=== PATIENT | female | born 1975 | race Caucasian/White ===

== ENCOUNTER 2017-01-02 12:20 | Emergency (ER) | payer MEDICAID, OTHER ==
[~2017-01-02] VITALS: Ht 154.9 cm; Wt 90.2 kg
[~2017-01-02 12:20] MED LIST: ALBU6.7H INH; CEPH-460 PO; PRED-503 PO
[2017-01-02 12:29] VITALS: BP 149/94; PULSE 81; RESP 18; TEMP 99.4; O2SAT 98
[2017-01-02 12:52] LABS: BLOOD, URINE NEG (NEG); GLUCOSE,URINE NEG (NEG); KETONE, URINE NEG (NEG); NITRITE,URINE NEG (NEG)
[2017-01-02 12:53] LABS: METHOD OF COLLECTION CLEAN CATCH; URINE COLOR YELLOW (YELLW/STRAW)
[2017-01-02 12:59] LABS: BACTERIA, URINE RARE /hpf; COMMENT (UR) CULT NOT INDICATED; COMMENT2 (UR) MUCOUS PRESENT; CULTURE IF INDICATED CULT NOT INDICATED
[2017-01-02] MEDS ORDERED: SODIUM CHLORIDE 0.9% FLUSH 5 ML FLUSH IVF PRN (13:00)
[2017-01-02 13:04] LABS: AUTOMATED NEUTROPHIL # 5.6 TH/MM3 (1.8-7.7); BASOPHIL # 0.1 TH/MM3 (0-0.2); BASOPHIL % 0.8 % (0.0-2.0); EOSINOPHIL % 0.6 % (0.0-4.0); HEMATOCRIT 38.4 % (35.0-46.0); HEMO FLAGS DIFF FINAL; LYMPH % 22.2 % (9.0-44.0); LYMPHOCYTE # 1.7 TH/MM3 (1.0-4.8); MEAN CELL VOLUME 79.5 FL (80.0-100.0); MEAN CORPUSCULAR HEMOGLOBIN 27.2 PG (27.0-34.0); MEAN CORPUSCULAR HGB CONC 34.2 % (32.0-36.0); MONO % 6.6 % (0.0-8.0); NEUT % 69.8 % (16.0-70.0); PLATELET COUNT 323 TH/MM3 (150-450); RED BLOOD COUNT 4.83 MIL/MM3 (4.00-5.30); RED CELL DISTRIBUTION WIDTH 13.6 % (11.6-17.2); WHITE BLOOD COUNT 7.9 TH/MM3 (4.0-11.0)
[2017-01-02 13:12] LABS: POTASSIUM 3.4 MEQ/L (3.5-5.1)
[2017-01-02 13:15] LABS: BICARBONATE 24.5 MEQ/L (21.0-32.0)
--- NOTE | 2017-01-02 15:00 | RADHPO ---
EXAM DATE/TIME: 01/02/2017 13:53 [place] COMPARISON: No previous studies available for comparison. INDICATIONS : Pelvic pain for one day. LAB(S): Beta-hC MEDICAL HISTORY : Sciatica. Bipolar disorder. Substance use. SURGICAL HISTORY : Cholecystectomy. Foot surgery. ENCOUNTER: Initial ACUITY: 1 day PAIN SCORE: 4/10 LOCATION: Bilateral pelvis MEASUREMENTS: UTERUS: 10.4 x 6.3 x 7.4 cm ENDOMETRIAL STRIPE: >20 mm RIGHT OVARY: 3.1 x 2.3 x 2.2 cm LEFT OVARY: 6.2 x 4.5 x 5.1 cm FINDINGS: UTERUS: There is a small hypoechoic rounded structure with echogenic ring in the fundal region with adjacent small fluid collection. The fluid collection measures up to 2.7 x 0.9 x 1.3 cm and is elongated. Ther e is no definite yolk sac or pole. There is no heart beat. There are 2 hypoechoic small structu res in the cervical region is consistent with nabothian cysts. RIGHT OVARY: Ovary contains no mass or significant cystic lesion. LEFT OVARY: There is a complex cystic structure present measuring up to approximately 4.1 x 4 cm in diameter with no evidence of a pole. There is a thickened wall and echogenic material along a portion of the structure. There is no abnormal color flow. There is small adjacent echogenic foci. MISCELLANEOUS: There is a small amount of free fluid in the cul-de-sac. CONCLUSION: 1. Small apical and structure the uterus with echogenic ring adjacent fluid which is nonspecific but may represent a small intrauterine gestational sac. There is no yolk sac or pole. 2. Complex 4 cm cystic structure in the left ovary which is nonspecific but demonstrates no yolk sac or pole. This is most consistent with a complex cyst. 3. Small amount of free fluid in the cul-de-sac. Tyson Gonzales MD on January 02, 2017 at 14:53 Board Certified Radiologist. This report was verified electronically.
[2017-01-02 15:18] VITALS: RESP 16; O2SAT 98
[2017-01-02] MEDS ORDERED: CLOT1CRE4 VAGINAL (15:18)
[2017-01-02] MEDS ORDERED: PREN29TA PO (15:18)
--- NOTE | 2017-01-02 15:19 | PD ---
HPI Chief Complaint: Related Problem Time Seen by Provider: 12:40 Travel History International Travel<30 days: No Contact w/Intl Traveler<30days: No Traveled to known affect area: No History of Present Illness HPI Patient is a 41-year-old female at approximately 4-5 weeks gestational age presents emergency department for evaluation of suprapubic pain. Patient states that she just had a home test which was positive and she's been doing some googling of her symptoms and is curious is essentially she has an ectopic . Patient denies any vaginal bleeding or vaginal discharge. Does not have a history of ectopic previously. PFSH Past Medical History Bipolar Disorder: Yes Anxiety: Yes Depression: Yes Cancer: No Cardiovascular Problems: No Diabetes: No Diminished Hearing: No Headaches: Yes Musculoskeletal: Yes (sciatica) Psychiatric: Yes Immunizations Current: Yes Migraines: Yes Seizures: No Tetanus Vaccination: Unknown ?: LMP: 11-30-16 : 1 Para: 4 Miscarriage: 2 : 1 Past Surgical History Cholecystectomy: Yes Social History Alcohol Use: Yes Tobacco Use: Yes Substance Use: Yes (CANNABIS) Allergies-Medications (Allergen,Severity, Reaction): Coded Allergies: No Known Allergies (Unverified , 01/02/17) Reported Meds & Prescriptions Reported Meds & Active Scripts Active Clotrimazole Vaginal 1% Cream 1 Appl VAGINAL HS Plus Iron 29-1 mg ( Vit-Iron Carbonyl) 1 Tab Tab 1 Tab PO DAILY Review of Systems Except as stated in HPI: all other systems reviewed are Neg Physical Exam Narrative GENERAL: Well-developed well-nourished no apparent distress SKIN: Warm and dry. HEAD: Atraumatic. Normocephalic. EYES: Pupils equal and round. No scleral icterus. No injection or drainage. ENT: No nasal bleeding or discharge. Mucous membranes pink and moist. NECK: Trachea midline. No JVD. CARDIOVASCULAR: Regular rate and rhythm. No murmur appreciated. RESPIRATORY: No accessory muscle use. Clear to auscultation. Breath sounds equal bilaterally. GASTROINTESTINAL: Abdomen soft, non-tender, nondistended. Hepatic and splenic margins not palpable. GENITOURINARY: Exam performed with female nurse student financial services counselor at all times. Is very scant amount of curd-like discharge which could be consistent with an early yeast infection. No cervical motion tenderness no adnexal tenderness and no midline uterine tenderness. There is no bleeding in external genitalia is grossly normal without any lesion. MUSCULOSKELETAL: No obvious deformities. No clubbing. No cyanosis. No edema. NEUROLOGICAL: Awake and alert. No obvious cranial nerve deficits. Motor grossly within normal limits. Normal speech. PSYCHIATRIC: Appropriate mood and affect; insight and judgment normal. Data Data Last Documented VS Vital Signs Date Time Temp Pulse Resp B/P Pulse Ox O2 Delivery O2 Flow Rate FiO2 01/02/17 15:38 80 16 98 01/02/17 15:18 Room Air 01/02/17 12:29 99.4 149/94 Orders Urinalysis - C+S If Indicated (01/02/17 12:30) Ed Urine Pregnancytest Poc (01/02/17 12:30) Ed Poc Ultrasound (01/02/17 ) Basic Metabolic Panel (Bmp) (01/02/17 12:54) Beta Hcg (Quant/Titer) (01/02/17 12:54) Complete Blood Count With Diff (01/02/17 12:54) Iv Access Insert/Monitor (01/02/17 12:54) Ecg Monitoring (01/02/17 12:54) Oximetry (01/02/17 12:54) Sodium Chloride 0.9% Flush (Ns Flush) (01/02/17 13:00) Us Pelvis (Ques Pr/Ect)W Trans (01/02/17 12:54) Wet Prep Profile (01/02/17 12:55) Gc And Chlamydia Pcr (01/02/17 12:55) Labs Laboratory Tests Test 01/02/17 01/02/17 01/02/17 12:35 12:50 15:10 Urine Collection Type CLEAN CATCH Urine Color YELLOW Urine Turbidity CLEAR Urine pH 6.0 Urine Specific [place] 1.027 Urine Protein NEG mg/dL Urine Glucose (UA) NEG mg/dL Urine Ketones NEG mg/dL Urine Occult Blood NEG Urine Nitrite NEG Urine Bilirubin NEG Urine Leukocyte Esterase NEG Urine Squamous Epithelial 6-8 /hpf Cells Urine Amorphous Sediment FEW Urine Bacteria RARE /hpf Microscopic Urinalysis Comment CULT NOT INDICATED Urine Collection Time 1235 White Blood Count 7.9 TH/MM3 Red Blood Count 4.83 MIL/MM3 Hemoglobin 13.1 GM/DL Hematocrit 38.4 % Mean Corpuscular Volume 79.5 FL Mean Corpuscular Hemoglobin 27.2 PG Mean Corpuscular Hemoglobin 34.2 % Concent Red Cell Distribution Width 13.6 % Platelet Count 323 TH/MM3 Mean Platelet Volume 9.2 FL Neutrophils (%) (Auto) 69.8 % Lymphocytes (%) (Auto) 22.2 % Monocytes (%) (Auto) 6.6 % Eosinophils (%) (Auto) 0.6 % Basophils (%) (Auto) 0.8 % Neutrophils # (Auto) 5.6 TH/MM3 Lymphocytes # (Auto) 1.7 TH/MM3 Monocytes # (Auto) 0.5 TH/MM3 Eosinophils # (Auto) 0.0 TH/MM3 Basophils # (Auto) 0.1 TH/MM3 CBC Comment DIFF FINAL Differential Comment Sodium Level 141 MEQ/L Potassium Level 3.4 MEQ/L Chloride Level 108 MEQ/L Carbon Dioxide Level 24.5 MEQ/L Anion Gap 9 MEQ/L Blood Urea Nitrogen 8 MG/DL Creatinine 0.61 MG/DL Estimat Glomerular Filtration 109 ML/MIN Rate Random Glucose 87 MG/DL Calcium Level 7.8 MG/DL Human Chorionic Gonadotropin, 1054 MIU/ML Quant Clue Cells (Wet Prep) NONE SEEN Vaginal Trichomonas (Wet Prep) NONE SEEN Vaginal Yeast (Wet Prep) NONE SEEN Chlamydia trachomatis DNA NOT DETECTED (PCR) Neisseria gonorrhoeae DNA NOT DETECTED (PCR) MDM Medical Decision Making Medical Screen Exam Complete: Yes Emergency Medical Condition: Yes Differential Diagnosis Ectopic seems unlikely, mild pelvic pain, getting , early , appendicitis unlikely. Narrative Course Patient roomed in the emergency department, she appears quite comfortable and affect on her revisit before pelvic exam she is sleeping soundly in no apparent distress. Pelvic exam is reassuring. Quant shows early . Last 24 hours Impressions Pelvis Ultrasound 01/02/17 1254 Signed Impressions: Service Date/Time: December 13:53 - CONCLUSION: 1. Small apical and structure the uterus with echogenic ring adjacent fluid which is nonspecific but may represent a small intrauterine gestational sac. There is no yolk sac or pole. 2. Complex 4 cm cystic structure in the left ovary which is nonspecific but demonstrates no yolk sac or pole. This is most consistent with a complex cyst. 3. Small amount of free fluid in the cul-de-sac. Tyson Gonzales MD Discussed with patient that no definitive intrauterine could be identified and recommended return to the emergency department 48 hours for repeat Quant. She states that she has an appointment early next week. I discussed that she should still consider returning to the emergency department if she is having any additional pain or vaginal bleeding. She verbalized understanding and agreement. Otherwise she is stable for discharge at this time as my index of suspicion for ruptured ectopic is very low. Procedures Procedure Narrative Bedside transabdominal ultrasound: Patient has cystic structure retrograde to the uterus. Trace of fluid in the pelvis. No obvious intrauterine is found. Diagnosis Primary Impression: Abdominal pain affecting Additional Instructions: I recommend following up very early with an EPOXY SPECIALIST as your age puts you in a high risk category. You are . Ultrasound suggests that you have an early in your uterus(womb) however it is not conclusive. There is still a possibility you have an ectopic . If you're having any symptoms at all I highly suggest you return to the emergency department in 48 hours for repeat testing. I have prescribed you pre- vitamins. Scripts Clotrimazole Vaginal 1% Cream1 Appl VAGINAL HS #45 GM Ref 0 Prov:Jarod Hester MD 01/02/17 Vit-Iron Carbonyl ( Plus Iron 29-1 mg)1 Tab Tab1 Tab PO DAILY #30 TAB Ref 9 Prov:Jarod Hester MD 01/02/17 Disposition: 01 DISCHARGE HOME Condition: Stable Jarod Hester MD Jan 02, 2017 15:19
[2017-01-02 21:06] LABS: CHLAMYDIA PCR NOT DETECTED (NOT DETECT); NEISSERIA PCR NOT DETECTED (NOT DETECT)
== END 2017-01-02 15:38 | disposition home or self-care (01) ==
LOC: PHED 12:20
DX: O26.899 Other specified pregnancy related conditions, unspecified trimester (principal); R10.9 Unspecified abdominal pain; O99.330 Smoking (tobacco) complicating pregnancy, unspecified trimester; O99.320 Drug use complicating pregnancy, unspecified trimester; Z3A.00 Weeks of gestation of pregnancy not specified
CPT/HCPCS: 76700; 76817; 80048; 81001; 84702; 84703; 85025; 87210; 87491; 87591

== ENCOUNTER 2017-01-11 11:50 | Emergency (ER) | payer OTHER ==
[~2017-01-11] VITALS: Ht 152.4 cm; Wt 88.6 kg
[~2017-01-11 11:50] MED LIST changes: -ALBU6.7H INH; -CEPH-460 PO; +CLOT1CRE4 VAGINAL; -PRED-503 PO; +PREN29TA PO
[2017-01-11 11:55] VITALS: BP_SYST 116; BP_SYST 138; BP_DIAS 81; BP_DIAS 91; PULSE 82; PULSE 97; RESP 16; TEMP 98.8; TEMP 99.1; O2SAT 95; O2SAT 98
--- NOTE | 2017-01-11 12:09 | PD ---
HPI Chief Complaint: Dizziness Time Seen by Provider: 12:01 Travel History International Travel<30 days: No Contact w/Intl Traveler<30days: No Traveled to known affect area: No History of Present Illness HPI Patient is a 42-year-old female who presents the emergency department with complaint of headache. For the last 2 days she has had a by mental headache, throbbing. No change in visual acuity, visual field changes. She notes that it radiates into the back of the head and down into the neck. She has been taking Motrin with resolution of the headache at home, but it comes back when her Motrin wears off. No nocturnal symptoms, fevers or chills, neck stiffness. Increasing stressors, states that she was recently diagnosed with and is concerned about being at her advanced maternal age. Additionally, patient seems very preoccupied about the date of her , believe she should be further along based on her sexual intercourse. She asked many questions about the dates of her , and she would've conceived, and how far along she is now. Based on her LMP of 11/30/16 she is 6 weeks 0 days today. She has not had any abdominal pain, low back pain, vaginal bleeding or discharge. This is not why she is here but he had multiple of her questions seemed to resolve around this. Per chart review patient was seen here recently and had positive beta Quant and transvaginal ultrasound. There is no evidence of ectopic at that time, she has RETRIEVAL SPECIALIST follow-up in 3 days to establish care for this . PFSH Past Medical History Bipolar Disorder: Yes Anxiety: Yes Depression: Yes Cancer: No Cardiovascular Problems: No Diabetes: No Diminished Hearing: No Headaches: Yes Musculoskeletal: Yes (sciatica) Psychiatric: Yes Immunizations Current: Yes Migraines: Yes Seizures: No ?: : 1 Para: 4 Miscarriage: 2 : 1 Past Surgical History Cholecystectomy: Yes Social History Alcohol Use: Yes Tobacco Use: Yes Substance Use: Yes (CANNABIS) Allergies-Medications (Allergen,Severity, Reaction): Coded Allergies: No Known Allergies (Unverified , 01/11/17) Reported Meds & Prescriptions Reported Meds & Active Scripts Active Plus Iron 29-1 mg ( Vit-Iron Carbonyl) 1 Tab Tab 1 Tab PO DAILY Review of Systems Except as stated in HPI: all other systems reviewed are Neg Physical Exam Narrative GENERAL: Well-appearing female in no acute distress SKIN: Warm and dry. HEAD: Atraumatic. Normocephalic. EYES: Pupils equal and round. No scleral icterus. No injection or drainage. ENT: No nasal bleeding or discharge. Mucous membranes pink and moist. NECK: Supple without nuchal rigidity CARDIOVASCULAR: Regular rate and rhythm. RESPIRATORY: No accessory muscle use. GASTROINTESTINAL: Abdomen soft, non-tender, nondistended. MUSCULOSKELETAL: Normal gait NEUROLOGICAL: Awake and alert. No obvious cranial nerve deficits. Motor grossly within normal limits. Normal speech. PSYCHIATRIC: Appropriate mood and affect; insight and judgment normal. Data Data Last Documented VS Vital Signs Date Time Temp Pulse Resp B/P Pulse Ox O2 Delivery O2 Flow Rate FiO2 01/11/17 12:00 16 98 Room Air 01/11/17 11:55 98.8 82 116/81 [facility] Medical Decision Making Medical Screen Exam Complete: Yes Emergency Medical Condition: Yes Medical Record Reviewed: Yes Differential Diagnosis 42-year-old female here with complaint of headache. Differential includes tension headache, cluster headache, migraine headache. Patient has been afebrile , no neck stiffness or noctural headaches, is well-appearing, with a normal neurologic examination. This makes infection and subarachnoid hemorrhage very unlikely. There is not enough evidence to pursue these diagnoses. Patient's questions however seemed to revolve much about the dates of her approximate . She does not however have any abdominal pain, vaginal bleeding, discharge, etc. She has RETRIEVAL SPECIALIST follow-up to establish care for this in 3 days and does not warrant further evaluation in the or for this. Narrative Course Patient's symptoms are mild, she does not warrant any further treatment for her headache. Was encouraged to use Tylenol for her headaches for home and establish care for this with RETRIEVAL SPECIALIST as scheduled on Friday. Diagnosis Primary Impression: Tension headache Referrals: Account Manager [employer] 3 days Primary Care Physician as needed Patient Instructions: General Instructions, Tension Headache (ED) Additional Instructions: Tylenol for headache. Follow-up with RETRIEVAL SPECIALIST as scheduled on Friday. Med/Other Pt SpecificInfo: No Change to Meds Disposition: 01 DISCHARGE HOME Condition: Stable Beverly Anderson MD Jan 11, 2017 12:09
[2017-01-11 12:25] VITALS: BP 131/74
== END 2017-01-11 12:30 | disposition home or self-care (01) ==
LOC: PHED 11:50
DX: O26.891 Other specified pregnancy related conditions, first trimester (principal); G44.209 Tension-type headache, unspecified, not intractable; Z3A.01 Less than 8 weeks gestation of pregnancy
CPT/HCPCS: 99283

== ENCOUNTER 2017-02-13 12:00 | Emergency (ER) | payer OTHER ==
[~2017-02-13] VITALS: Ht 154.9 cm; Wt 89.0 kg
[~2017-02-13 12:00] MED LIST changes: -CLOT1CRE4 VAGINAL
[2017-02-13 12:05] VITALS: BP 129/93; PULSE 89; RESP 18; TEMP 93.3; O2SAT 97
--- NOTE | 2017-02-13 13:16 | PD ---
HPI . Possible lice Chief Complaint: Skin Problem Time Seen by Provider: 13:16 Travel History International Travel<30 days: No Contact w/Intl Traveler<30days: No Traveled to known affect area: No History of Present Illness HPI 42-year-old female who is at approximately 11 weeks here with complaints of head itching for 4 months. Patient says she thinks she pulled a small bug out of her hair. She has small children in the house and thinks she may have caught lice. She has no other complaints. She does not bring this to the attention of her OB. She is [facility]. 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 PFSH Past Medical History Bipolar Disorder: Yes Anxiety: Yes Depression: Yes Cancer: No Cardiovascular Problems: No Diabetes: No Diminished Hearing: No Headaches: Yes Musculoskeletal: Yes (sciatica) Psychiatric: Yes Immunizations Current: Yes Migraines: Yes Seizures: No Tetanus Vaccination: > 5 Years Influenza Vaccination: No ?: : 5 Para: 3 Miscarriage: 0 : 1 Past Surgical History Cholecystectomy: Yes Social History Alcohol Use: No Tobacco Use: No Substance Use: Yes (CANNABIS) Allergies-Medications (Allergen,Severity, Reaction): Coded Allergies: No Known Allergies (Unverified , 01/11/17) Reported Meds & Prescriptions Reported Meds & Active Scripts Active Plus Iron 29-1 mg ( Vit-Iron Carbonyl) 1 Tab Tab 1 Tab PO DAILY Review of Systems General / Constitutional: No: Fever Eyes: No: Visual changes HENT: No: Headaches Cardiovascular: No: Chest Pain or Discomfort Respiratory: No: Shortness of Breath Gastrointestinal: No: Abdominal Pain Genitourinary: No: Dysuria Musculoskeletal: No: Pain Skin: Positive Itching, No Rash Neurologic: No: Weakness Psychiatric: No: Depression Endocrine: No: Polydipsia Hematologic/Lymphatic: No: Easy Bruising Physical Exam Narrative GENERAL: AAO x 3, no acute distress, Well-nourished, well-developed patient. SKIN: Warm and dry. No visible rashes or bruising. Dandruff, nits and adult lice visualized in scalp HEAD: Normocephalic and atraumatic. EYES: No scleral icterus. No injection or drainage. ENT: No nasal drainage noted. . Airway patent. NECK: Supple, trachea midline. No JVD. CARDIOVASCULAR: Regular rate and rhythm without murmurs, gallops, or rubs. RESPIRATORY: Breath sounds equal bilaterally. No accessory muscle use. No rhonchi or rales. GASTROINTESTINAL: visual inspection normal EXTREMITIES: No cyanosis or edema. BACK: Nontender without obvious deformity. No CVA tenderness. PSYCH: AAO x 3, normal affect. Data Data Last Documented VS Vital Signs Date Time Temp Pulse Resp B/P Pulse Ox O2 Delivery O2 Flow Rate FiO2 02/13/17 12:05 93.3 89 18 129/93 97 MDM Medical Decision Making Medical Screen Exam Complete: Yes Emergency Medical Condition: Yes Medical Record Reviewed: Yes Differential Diagnosis lice, seborrheic dermatitis, less likely bedbugs Narrative Course 42-year-old female who is at approximately 11 weeks here with complaints of head itching for 4 months. Patient says she thinks she pulled a small bug out of her hair. She has small children in the house and thinks she may have caught lice. She has no other complaints. She does not bring this to the attention of her OB. [facility]. 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 Seen and examined. She has an active lice infestation. Recommended [id number] Nix, which is safe in . She has been advised to see her TRAP SETTER immediately. I advised her to follow-up this week if possible. Work clearance: needs to see TRAP SETTER. She may need something stronger than Nix. Patient verbalized understanding of instructions, questions were answered, and thanked me for their care. I advised them if their condition worsens, please return to the nearest emergency room for further care. Diagnosis Primary Impression: Head lice Patient Instructions: General Instructions Additional Instructions: You can purchase Nix at the local pharmacy. It is safe for use in . Follow up with your retail special event associate Disposition: DISCHARGE HOME Condition: Stable Terri Alcaraz Feb 13, 2017 13:16
== END 2017-02-13 13:46 | disposition home or self-care (01) ==
LOC: PHED 12:00 → PHEFT 13:46
DX: B85.0 Pediculosis due to Pediculus humanus capitis (principal)
CPT/HCPCS: 99282

== ENCOUNTER 2017-02-21 01:19 | Emergency (ER) | payer OTHER ==
[~2017-02-21] VITALS: Ht 154.9 cm; Wt 90.0 kg
[2017-02-21 01:26] VITALS: BP 130/75; PULSE 76; RESP 14; TEMP 98.2; O2SAT 96
--- NOTE | 2017-02-21 01:31 | PD ---
Physical Exam Date Seen by Provider: Feb 21, 2017 Time Seen by Provider: 01:27 Narrative PT SEEN IN TRIAGE. PRESENTS BY EMS .C/O SPOTTING AND CRAMPING. G5,P3,AB1 WITH 11 WEEK PREG. "WORSE ARGUING WITH BABY DADDY" VITALS STABLE. PT WAITING ON BED PLACEMENT [facility] Medical Record Reviewed: Yes Supervised Visit with RUDY: Yes Jv Umanzor Feb 21, 2017 01:31
== END 2017-02-21 05:00 | disposition left against medical advice (07) ==
LOC: NED 01:19
DX: O26.851 Spotting complicating pregnancy, first trimester (principal); Z53.21 Procedure and treatment not carried out due to patient leaving prior to being seen by health care provider; R10.9 Unspecified abdominal pain

== ENCOUNTER 2017-02-28 12:23 | Emergency (ER) | payer OTHER ==
[~2017-02-28] VITALS: Ht 154.9 cm; Wt 88.3 kg
[2017-02-28 12:33] VITALS: BP 130/81; PULSE 108; RESP 20; TEMP 98.6; O2SAT 95
--- NOTE | 2017-02-28 12:40 | PD ---
HPI Chief Complaint: GI Complaint Time Seen by Provider: 12:40 Travel History International Travel<30 days: No Contact w/Intl Traveler<30days: No Traveled to known affect area: No History of Present Illness HPI 42-year-old female who is 12 weeks came in because she's been having vomiting and diarrhea for past 2 days and cramping. Yesterday she had some spotting as well. Patient says that she has had her ultrasound done and confirmed an in utero . She also has an OB. She seemed anxious and in somewhat of a distress. She was slightly tachycardic in the triage. Patient is A1. PFS Past Medical History Narrative Medical List of her past medical, surgical, social and family history was reviewed from the nursing note. Bipolar Disorder: Yes Anxiety: Yes Depression: Yes Cancer: No Cardiovascular Problems: No Diabetes: No Diminished Hearing: No Headaches: Yes Musculoskeletal: Yes (sciatica) Psychiatric: Yes Immunizations Current: Yes Migraines: Yes Seizures: No ?: : 5 Para: 3 Miscarriage: 0 : 1 Past Surgical History Cholecystectomy: Yes Social History Alcohol Use: No Tobacco Use: No Substance Use: Yes (CANNABIS) Allergies-Medications (Allergen,Severity, Reaction): Coded Allergies: No Known Allergies (Unverified , 02/28/17) Comments No known drug allergies. Reported Meds & Prescriptions Reported Meds & Active Scripts Active Zofran Odt (Ondansetron Odt) 4 Mg Tab 4 Mg SL Q6HR PRN Plus Iron 29-1 mg ( Vit-Iron Carbonyl) 1 Tab Tab 1 Tab PO DAILY Narrative Medication List of her home medications reviewed from the nursing note. Review of Systems Except as stated in HPI: all other systems reviewed are Neg Physical Exam Narrative GENERAL: Awake, alert, obese, anxious SKIN: Focused skin assessment warm/dry. HEAD: Atraumatic. Normocephalic. EYES: Pupils equal and round. No scleral icterus. No injection or drainage. ENT: No nasal bleeding or discharge. Mucous membranes pink and moist. NECK: Trachea midline. No JVD. CARDIOVASCULAR: Regular rate and rhythm. No murmur appreciated. RESPIRATORY: No accessory muscle use. Clear to auscultation. Breath sounds equal bilaterally. GASTROINTESTINAL: Abdomen soft, non-tender, nondistended. Hepatic and splenic margins not palpable. MUSCULOSKELETAL: No obvious deformities. No clubbing. No cyanosis. No edema. NEUROLOGICAL: Awake and alert. No obvious cranial nerve deficits. Motor grossly within normal limits. Normal speech. PSYCHIATRIC: Appropriate mood and affect; insight and judgment normal. Data Data Last Documented VS Orders Complete Blood Count With Diff (02/28/17 12:45) Basic Metabolic Panel (Bmp) (02/28/17 12:45) Type And Screen (02/28/17 12:45) Ua Includes Microscopic (02/28/17 12:45) Ondansetron Inj (Zofran Inj) (02/28/17 12:45) Sodium Chlor 0.9% 1000 Ml Inj (Ns 1000 M (02/28/17 12:45) Sodium Chlor 0.9% 1000 Ml Inj (Ns 1000 M (02/28/17 12:45) Labs MDM Medical Decision Making Medical Screen Exam Complete: Yes Emergency Medical Condition: Yes Medical Record Reviewed: Yes Differential Diagnosis Acute gastroenteritis, dehydration, vaginal bleeding and Narrative Course 1:56 PM blood test results of back and within normal limits. I have ordered 2 L of IV fluid bolus and Zofran for her. Patient has not vomited yet. I intend to discharge her home once the fluid is done. She needs to follow up with her OB. The nurse did a bedside Doppler and heart rate was checked. It was 126 bpm. Procedures EKG Prior to Arrival: No Diagnosis Primary Impression: Acute gastroenteritis Additional Impression: Vaginal bleeding in patient at less than 20 weeks gestation Referrals: Primary Care Physician 3 days Additional Instructions: Please call your OB and make a follow-up appointment. Take the medication as per the prescription direction. Drink lots of fluid to keep himself hydrated. Med/Other Pt SpecificInfo: Prescription(s) given Scripts Ondansetron Odt (Zofran Odt)4 Mg Tab4 Mg SL Q6HR PRN (Nausea/Vomiting) #15 TAB Ref 0 Prov:Corey Cleaning MD 02/28/17 Disposition: 01 DISCHARGE HOME Condition: Stable Corey Cleaning MD Feb 28, 2017 12:40 Eosinophils (%) (Auto) 0.6 % Basophils (%) (Auto) 0.4 % Neutrophils # (Auto) 5.4 TH/MM3 Lymphocytes # (Auto) 1.3 TH/MM3 Monocytes # (Auto) 0.5 TH/MM3 Eosinophils # (Auto) 0.0 TH/MM3 Basophils # (Auto) 0.0 TH/MM3 CBC Comment DIFF FINAL Differential Comment Sodium Level 139 MEQ/L Potassium Level 3.5 MEQ/L Chloride Level 105 MEQ/L Carbon Dioxide Level 24.1 MEQ/L Anion Gap 10 MEQ/L Blood Urea Nitrogen 9 MG/DL Creatinine 0.74 MG/DL Estimat Glomerular Filtration 86 ML/MIN Rate Random Glucose 117 MG/DL Calcium Level 9.1 MG/DL Urine Color YELLOW Urine Turbidity CLEAR Urine pH 5.0 Urine Specific [place] 1.027 Urine Protein NEG mg/dL Urine Glucose (UA) NEG mg/dL Urine Ketones NEG mg/dL Urine Occult Blood NEG Urine Nitrite NEG Urine Bilirubin NEG Urine Leukocyte Esterase NEG Urine RBC 0-3 /hpf Urine WBC 0-2 /hpf Urine Squamous Epithelial 0-5 /hpf Cells Urine Hyaline Casts 0-2 /lpf Urine Mucus FEW /lpf MDM Medical Decision Making Medical Screen Exam Complete: Yes Emergency Medical Condition: Yes Medical Record Reviewed: Yes Differential Diagnosis Acute gastroenteritis, dehydration, vaginal bleeding and Narrative Course 1:56 PM blood test results of back and within normal limits. I have ordered 2 L of IV fluid bolus and Zofran for her. Patient has not vomited yet. I intend to discharge her home once the fluid is done. She needs to follow up with her OB. The nurse did a bedside Doppler and heart rate was checked. It was 126 bpm. Procedures EKG Prior to Arrival: No Diagnosis Primary Impression: Acute gastroenteritis Additional Impression: Vaginal bleeding in patient at less than 20 weeks gestation Referrals: Primary Care Physician 3 days Additional Instructions: Please call your OB and make a follow-up appointment. Take the medication as per the prescription direction. Drink lots of fluid to keep himself hydrated. Med/Other Pt SpecificInfo: Prescription(s) given Scripts Ondansetron Odt (Zofran Odt)4 Mg Tab4 Mg SL Q6HR PRN (Nausea/Vomiting) #15 TAB Ref 0 Prov:Corey Cleaning MD 02/28/17 Disposition: 01 DISCHARGE HOME Condition: Stable Corey Cleaning MD Feb 28, 2017 12:40 Corey Cleaning MD Feb 28, 2017 12:40
[2017-02-28] MEDS ORDERED: SODIUM CHLOR 0.9% 1000 ML INJ 1,000 ML IV ONE ×2 (12:45)
[2017-02-28] MEDS ORDERED: ONDANSETRON HCL 4 MG/2 ML VIAL IM ONE (12:45)
[2017-02-28 13:13] LABS: AUTOMATED NEUTROPHIL # 5.4 TH/MM3 (1.8-7.7); BASOPHIL % 0.4 % (0.0-2.0); EOSINOPHIL % 0.6 % (0.0-4.0); HEMO FLAGS DIFF FINAL; LYMPH % 18.2 % (9.0-44.0); LYMPHOCYTE # 1.3 TH/MM3 (1.0-4.8); MEAN CELL VOLUME 80.9 FL (80.0-100.0); MEAN CORPUSCULAR HEMOGLOBIN 27.2 PG (27.0-34.0); MEAN CORPUSCULAR HGB CONC 33.6 % (32.0-36.0); MONO % 6.8 % (0.0-8.0); PLATELET COUNT 319 TH/MM3 (150-450); RED BLOOD COUNT 5.19 MIL/MM3 (4.00-5.30); RED CELL DISTRIBUTION WIDTH 13.1 % (11.6-17.2); WHITE BLOOD COUNT 7.2 TH/MM3 (4.0-11.0)
[2017-02-28 13:14] LABS: BLOOD, URINE NEG (NEG); GLUCOSE,URINE NEG (NEG); KETONE, URINE NEG (NEG); NITRITE,URINE NEG (NEG)
[2017-02-28 13:20] LABS: URINE COLOR YELLOW (YELLW/STRAW)
[2017-02-28 13:21] LABS: HYALINE CAST, URINE 0-2 /lpf (RARE); MUCUS URINE FEW /lpf (OCC); RBC, URINE 0-3 /hpf (0-3); SQUAMOUS EPITHELIAL CELL URINE 0-5 /hpf (0-5); WBC, URINE 0-2 /hpf (0-5)
[2017-02-28 13:22] LABS: POTASSIUM 3.5 MEQ/L (3.5-5.1)
[2017-02-28 13:25] LABS: BICARBONATE 24.1 MEQ/L (21.0-32.0)
[2017-02-28] MEDS ORDERED: ZOFR4TAB3 SL (13:57)
== END 2017-02-28 15:12 | disposition home or self-care (01) ==
LOC: PHED 12:23
DX: O09.521 Supervision of elderly multigravida, first trimester (principal); O20.9 Hemorrhage in early pregnancy, unspecified; Z3A.12 12 weeks gestation of pregnancy; K52.9 Noninfective gastroenteritis and colitis, unspecified; R00.0 Tachycardia, unspecified
CPT/HCPCS: 80048; 81001; 85025; 86850; 86900; 86901; 96360; 96372; 99284; J2405; J7030

== ENCOUNTER 2017-04-03 12:32 | Emergency (ER) | payer OTHER ==
[~2017-04-03] VITALS: Ht 154.9 cm; Wt 90.0 kg
[~2017-04-03 12:32] MED LIST changes: +ZOFR4TAB3 SL
[2017-04-03 12:34] VITALS: BP 134/77; PULSE 82; RESP 16; TEMP 98.2; O2SAT 100
[2017-04-03 13:06] LABS: BLOOD, URINE NEG (NEG); GLUCOSE,URINE NEG (NEG); KETONE, URINE NEG (NEG); NITRITE,URINE NEG (NEG); PH, URINE 5.5 (5.0-8.5)
[2017-04-03 13:13] LABS: METHOD OF COLLECTION CLEAN CATCH; URINE COLOR YELLOW (YELLW/STRAW)
[2017-04-03 13:14] LABS: MUCUS URINE FEW /lpf (OCC); RBC, URINE 0-3 /hpf (0-3); SQUAMOUS EPITHELIAL CELL URINE > 8 /hpf (0-5); WBC, URINE 0-2 /hpf (0-5)
[2017-04-03 13:15] LABS: BACTERIA, URINE FEW /hpf; COMMENT (UR) CULT NOT INDICATED; CULTURE IF INDICATED CULT NOT INDICATED
[2017-04-03] MEDS ORDERED: TYLE325T PO (13:30)
[2017-04-03] MEDS ORDERED: ACETAMINOPHEN 325 MG TAB PO ONE (13:30)
[2017-04-03] MEDS ORDERED: AMOX500T PO (13:30)
--- NOTE | 2017-04-03 13:30 | PD ---
HPI Chief Complaint: Back/ Neck Pain or Injury Time Seen by Provider: 13:18 Travel History International Travel<30 days: No Contact w/Intl Traveler<30days: No Traveled to known affect area: No History of Present Illness HPI 42-year-old female with history of chronic back pains, sciatica, currently 18 weeks , IUP confirmed by ultrasound and follow up with [facility] [facility], presents to the ER today for 1 week history of right lower back pains or radiation down the right leg, gets worse during the day because she is on her feet all the time at work, and worse with movements. She also reports pelvic pressure. She denies any urinary symptoms, fevers, vaginal bleeding, discharge, or any other issues. Pain is currently reported to be a 10 out of 10. Modifying Factors: None Associated Signs & Symptoms: Right sided back pain with radiation down the right leg Risk Factors: History of sciatica, PFSH Past Medical History Bipolar Disorder: Yes Anxiety: Yes Depression: Yes Cancer: No Cardiovascular Problems: No Diabetes: No Diminished Hearing: No Headaches: Yes Musculoskeletal: Yes (sciatica) Psychiatric: Yes Immunizations Current: Yes Migraines: Yes Seizures: No Influenza Vaccination: No ?: LMP: 18 WEEKS : 5 Para: 3 Miscarriage: 0 : 1 Past Surgical History Cholecystectomy: Yes Social History Alcohol Use: No Tobacco Use: No Substance Use: Yes (CANNABIS, denies at this time) Allergies-Medications (Allergen,Severity, Reaction): Coded Allergies: No Known Allergies (Unverified , 04/03/17) Reported Meds & Prescriptions Reported Meds & Active Scripts Active Plus Iron 29-1 mg ( Vit-Iron Carbonyl) 1 Tab Tab 1 Tab PO DAILY Review of Systems Except as stated in HPI: all other systems reviewed are Neg Physical Exam Narrative GENERAL: Well-developed middle age white female patient currently in moderate distress. Awake and oriented 3. SKIN: Focused skin assessment warm/dry. HEAD: Atraumatic. Normocephalic. EYES: Pupils equal and round. No scleral icterus. No injection or drainage. ENT: No nasal bleeding or discharge. Mucous membranes pink and moist. NECK: Trachea midline. No JVD. CARDIOVASCULAR: Regular rate and rhythm. No murmur appreciated. RESPIRATORY: No accessory muscle use. Clear to auscultation. Breath sounds equal bilaterally. GASTROINTESTINAL: Abdomen soft, non-tender, nondistended. Hepatic and splenic margins not palpable. BACK: No CVA tenderness. No rash. Mild tenderness on palpation at the right SI joint. MUSCULOSKELETAL: No obvious deformities. No clubbing. No cyanosis. No edema. NEUROLOGICAL: Awake and alert. No obvious cranial nerve deficits. Motor grossly within normal limits. Normal speech. PSYCHIATRIC: Appropriate mood and affect; insight and judgment normal. Data Data Last Documented VS Vital Signs Date Time Temp Pulse Resp B/P Pulse Ox O2 Delivery O2 Flow Rate FiO2 04/03/17 12:34 98.2 82 16 134/77 100 Orders Urinalysis - C+S If Indicated (04/03/17 12:51) Ed Urine Pregnancytest Poc (04/03/17 12:51) Acetaminophen (Tylenol) (04/03/17 13:30) Labs Laboratory Tests Test 04/03/17 12:55 Urine Collection Type CLEAN CATCH Urine Color YELLOW Urine Turbidity CLEAR Urine pH 5.5 Urine Specific [place] 1.025 Urine Protein TRACE mg/dL Urine Glucose (UA) NEG mg/dL Urine Ketones NEG mg/dL Urine Occult Blood NEG Urine Nitrite NEG Urine Bilirubin NEG Urine Leukocyte Esterase NEG Urine RBC 0-3 /hpf Urine WBC 0-2 /hpf Urine Squamous Epithelial > 8 /hpf Cells Urine Bacteria FEW /hpf Urine Mucus FEW /lpf Microscopic Urinalysis Comment CULT NOT INDICATED Urine Collection Time 12:55 [facility] Medical Decision Making Medical Screen Exam Complete: Yes Emergency Medical Condition: Yes Medical Record Reviewed: Yes Differential Diagnosis Right lower back painsUTI/pyelonephritis versus sciatica versus back strain Narrative Course UA did not indicate significant UTI although there is bacteriuria which I plan to treat considering the patient is . Her exam is more consistent with sciatica. heart tones 140s. At this point, my plan would be to give her symptomatic relief or pain and have her stay off her feet and avoid heavy lifting. Follow-up with [employer] [facility]. Return for any worsening in symptoms as necessary. The plan has discussed with her and she states understanding. Diagnosis Primary Impression: Sciatica Additional Impression: Bacteriuria during Med/Other Pt SpecificInfo: Prescription(s) given Scripts Acetaminophen (Tylenol)325 Mg [id number] Mg PO Q6H PRN (PAIN SCALE 1 TO 10) #20 TAB Ref 0 Prov:Gurmeet Montes MD 04/03/17 Amoxicillin 500 Mg [id number] Mg PO TID 7 Days Ref 0 Prov:Gurmeet Montes MD 04/03/17 Disposition: 01 DISCHARGE HOME Condition: Stable Gurmeet Montes MD April 03, 2017 13:30
[2017-04-03 13:42] VITALS: BP 130/70; PULSE 80; RESP 18; O2SAT 100
== END 2017-04-03 13:43 | disposition home or self-care (01) ==
LOC: PHED 12:32
DX: O99.89 Other specified diseases and conditions complicating pregnancy, childbirth and the puerperium (principal); M54.30 Sciatica, unspecified side; R82.71 Bacteriuria; O99.342 Other mental disorders complicating pregnancy, second trimester; F31.9 Bipolar disorder, unspecified; Z3A.18 18 weeks gestation of pregnancy
CPT/HCPCS: 81001; 84703; 99284

== ENCOUNTER 2017-05-17 06:51 | Emergency (ER) | payer MEDICAID, OTHER ==
[~2017-05-17] VITALS: Ht 154.9 cm; Wt 91.4 kg
[~2017-05-17 06:51] MED LIST changes: +AMOX500T PO; +TYLE325T PO; -ZOFR4TAB3 SL
[2017-05-17 06:55] VITALS: BP 145/82; PULSE 104; RESP 18; TEMP 98.4; O2SAT 98
[2017-05-17 07:26] LABS: BLOOD, URINE NEG (NEG); GLUCOSE,URINE NEG (NEG); KETONE, URINE NEG (NEG); NITRITE,URINE NEG (NEG)
[2017-05-17 07:28] LABS: METHOD OF COLLECTION CLEAN CATCH; URINE COLOR YELLOW (YELLW/STRAW)
[2017-05-17 07:30] LABS: COMMENT (UR) CULT NOT INDICATED; CULTURE IF INDICATED CULT NOT INDICATED; SQUAMOUS EPITHELIAL CELL URINE 0-5 /hpf (0-5); WBC, URINE 0-2 /hpf (0-5)
--- NOTE | 2017-05-17 07:34 | PD ---
HPI Chief Complaint: Related Problem Time Seen by Provider: 07:02 Travel History International Travel<30 days: No Contact w/Intl Traveler<30days: No Traveled to known affect area: No History of Present Illness HPI c/o states about 24weeks, has obgyn, today c/o lower suprapubic area cramping, nonrhythmic, no vag d/c nor any vaginal bleeding ongoing, started after finding out that her boyfriend has been cheating on her.... PER PT AND 1 ELECTIVE AB PFSH Past Medical History Bipolar Disorder: Yes Anxiety: Yes Depression: Yes Cancer: No Cardiovascular Problems: No Diabetes: No Diminished Hearing: No Headaches: Yes Musculoskeletal: Yes (sciatica) Psychiatric: Yes Immunizations Current: Yes Migraines: Yes Seizures: No Tetanus Vaccination: Unknown ?: LMP: November 2016 : 5 Para: 3 Miscarriage: 0 : 1 Past Surgical History Cholecystectomy: Yes Social History Alcohol Use: No Tobacco Use: No Substance Use: Yes (CANNABIS, denies at this time) Allergies-Medications (Allergen,Severity, Reaction): Coded Allergies: No Known Allergies (Unverified , 05/17/17) Reported Meds & Prescriptions Reported Meds & Active Scripts Active Plus Iron 29-1 mg ( Vit-Iron Carbonyl) 1 Tab Tab 1 Tab PO DAILY Review of Systems Except as stated in HPI: all other systems reviewed are Neg Genitourinary: Positive: Pelvic Pain Physical Exam Narrative GENERAL: SKIN: Warm and dry. HEAD: Atraumatic. Normocephalic. EYES: Pupils equal and round. No scleral icterus. No injection or drainage. ENT: No nasal bleeding or discharge. Mucous membranes pink and moist. NECK: Trachea midline. No JVD. CARDIOVASCULAR: Regular rate and rhythm. RESPIRATORY: No accessory muscle use. Clear to auscultation. Breath sounds equal bilaterally. GASTROINTESTINAL: overweight female, Abdomen soft, non-tender, nondistended. RN at BEDSIDE FOR EXAM: PELVIC TO COLLECT SWABS FOR GC/CHLAM, OS CLOSED, NO BLOOD IN VAULT NOR ACTIVELY EXTRUDING OS. MUSCULOSKELETAL: Extremities without clubbing, cyanosis, or edema. No obvious deformities. NEUROLOGICAL: Awake and alert. No obvious cranial nerve deficits. Motor grossly within normal limits. Five out of 5 muscle strength in the arms and legs. Normal speech. PSYCHIATRIC: Appropriate mood and affect; insight and judgment normal. Data Data Last Documented VS Vital Signs Date Time Temp Pulse Resp B/P Pulse Ox O2 Delivery O2 Flow Rate FiO2 05/17/17 06:55 98.4 104 18 145/82 98 Orders Urinalysis - C+S If Indicated (05/17/17 07:03) Gc And Chlamydia Pcr (05/17/17 07:03) Wet Prep Profile (05/17/17 07:03) Labs Laboratory Tests Test 05/17/17 07:20 Urine Collection Type CLEAN CATCH Urine Color YELLOW Urine Turbidity CLEAR Urine pH 6.0 Urine Specific [place] 1.016 Urine Protein NEG mg/dL Urine Glucose (UA) NEG mg/dL Urine Ketones NEG mg/dL Urine Occult Blood NEG Urine Nitrite NEG Urine Bilirubin NEG Urine Leukocyte Esterase NEG Urine WBC 0-2 /hpf Urine Squamous Epithelial 0-5 /hpf Cells Microscopic Urinalysis Comment CULT NOT INDICATED Clue Cells (Wet Prep) NONE SEEN Vaginal Trichomonas (Wet Prep) NONE SEEN Vaginal Yeast (Wet Prep) NONE SEEN MDM Medical Decision Making Medical Screen Exam Complete: Yes Emergency Medical Condition: Yes Medical Record Reviewed: Yes Interpretation(s) LIMITED BEDSIDE TRANSABDOMINAL ULTRASOUND DONE BY ME: IUP PRESENT, POSITIVE MOVEMENT, AND POSITIVE FHR AT 180'S Differential Diagnosis DEMISE V THREATENED AB V UTI V STD Narrative Course PATIENT IS NOW CALM AND RELAXED, ULTRASOUND SHOWED A VIABLE FETUS WITH FHT, UA WAS NEG FOR UTI, WET PREP WAS NEG, AND GC AND CHLAM IS PENDING. PT WILL BE D/C WITH CALL BACK SHOULD GC/CHLAM RESULTS BE POSITIVE. Diagnosis Primary Impression: Threatened Patient Instructions: General Instructions, Return to Work Instructions (GEN), Threatened Miscarriage (ED) Disposition: 01 DISCHARGE HOME Condition: Stable Tye Broderick MD May 17, 2017 07:34
[2017-05-17 15:20] LABS: CHLAMYDIA PCR NOT DETECTED (NOT DETECT); NEISSERIA PCR NOT DETECTED (NOT DETECT)
== END 2017-05-17 08:30 | disposition home or self-care (01) ==
LOC: PHED 06:51
DX: O20.0 Threatened abortion (principal)
CPT/HCPCS: 81001; 87210; 87491; 87591; 99283

== ENCOUNTER 2017-06-19 19:30 | Emergency (ER) | payer MEDICAID ==
[~2017-06-19] VITALS: Ht 154.9 cm; Wt 89.9 kg
[~2017-06-19 19:30] MED LIST changes: -AMOX500T PO; -TYLE325T PO
[2017-06-19 19:35] VITALS: BP 139/64; PULSE 82; RESP 16; TEMP 98; O2SAT 97
--- NOTE | 2017-06-19 19:56 | PD ---
HPI Chief Complaint: Related Problem Time Seen by Provider: 19:42 Travel History International Travel<30 days: No Contact w/Intl Traveler<30days: No Traveled to known affect area: No History of Present Illness HPI C/O 2 DAY ABDOMINAL PULLING SENSATION, NOT REALLY CRAMPING, NOT RHYTHMIC AND MOSTLY AFTER EXERCISING/WALKING LONG PERIODS, NO VAG BLEEDING AT ALL. CALLED WATCHSTANDER WHO RECC SHE COME TO ER FOR EVAL. PFSH Past Medical History Bipolar Disorder: Yes Anxiety: Yes Depression: Yes Cancer: No Cardiovascular Problems: No Diabetes: No Diminished Hearing: No Headaches: Yes Musculoskeletal: Yes (sciatica) Psychiatric: Yes Immunizations Current: Yes Migraines: Yes Seizures: No ?: LMP: edc 09/06/17 : 5 Para: 3 Miscarriage: 0 : 1 Past Surgical History Cholecystectomy: Yes Social History Alcohol Use: No Tobacco Use: No Substance Use: Yes (CANNABIS, denies at this time) Allergies-Medications (Allergen,Severity, Reaction): Coded Allergies: No Known Allergies (Unverified , 05/17/17) Reported Meds & Prescriptions Reported Meds & Active Scripts Active Plus Iron 29-1 mg ( Vit-Iron Carbonyl) 1 Tab Tab 1 Tab PO DAILY Review of Systems Except as stated in HPI: all other systems reviewed are Neg Gastrointestinal: Positive: Abdominal Pain Genitourinary: Positive: Frequency Physical Exam Narrative GENERAL: SKIN: Warm and dry. HEAD: Atraumatic. Normocephalic. EYES: Pupils equal and round. No scleral icterus. No injection or drainage. ENT: No nasal bleeding or discharge. Mucous membranes pink and moist. NECK: Trachea midline. No JVD. CARDIOVASCULAR: Regular rate and rhythm. RESPIRATORY: No accessory muscle use. Clear to auscultation. Breath sounds equal bilaterally. GASTROINTESTINAL: Abdomen soft, non-tender, GRAVID, OS CLOSED AND NO BLEEDING NOTED MUSCULOSKELETAL: Extremities without clubbing, cyanosis, or edema. No obvious deformities. NEUROLOGICAL: Awake and alert. No obvious cranial nerve deficits. Motor grossly within normal limits. Five out of 5 muscle strength in the arms and legs. Normal speech. PSYCHIATRIC: Appropriate mood and affect; insight and judgment normal. Data Data Last Documented VS Vital Signs Date Time Temp Pulse Resp B/P Pulse Ox O2 Delivery O2 Flow Rate FiO2 06/19/17 20:06 82 14 06/19/17 19:35 98.0 139/64 97 Orders Urinalysis - C+S If Indicated (06/19/17 19:51) Urine Culture (06/19/17 19:50) Labs Laboratory Tests Test 06/19/17 19:50 Urine Color YELLOW Urine Turbidity CLOUDY Urine pH 6.0 Urine Specific [place] 1.030 Urine Protein TRACE mg/dL Urine Glucose (UA) NEG mg/dL Urine Ketones NEG mg/dL Urine Occult Blood NEG Urine Nitrite NEG Urine Bilirubin NEG Urine Leukocyte Esterase NEG Urine RBC 10-14 /hpf Urine WBC 3-5 /hpf Urine Squamous Epithelial > 8 /hpf Cells Urine Calcium Oxalate Crystals MANY /hpf Urine Bacteria MOD /hpf Urine Mucus MOD /lpf Microscopic Urinalysis Comment CULTURE INDICATED MDM Medical Decision Making Medical Screen Exam Complete: Yes Emergency Medical Condition: Yes Medical Record Reviewed: Yes Differential Diagnosis BRANDON PADILLA V [employer] V UTI Narrative Course PATIENT WAS PREVIOUSLY SEEN AND WAS SWABBED AND UA ABOUT 4 OR 5 WEEKS AGO BY ME WELL BEDSIDE ULTRASOUND...TODAY PELVIC JUST TO CHECK CERVICAL OPENING BUT NO SWABBING NEEDED. WILL ORDER UA TO CHECK FOR UTI. ALSO REPEATED BEDSIDE ULTRASOUND WHICH SHOWED MOVEMENT, FHT IN 140'S, AND IUP....UA REVEALS FINDINGS C/W UTI, WILL BE D/C WITH PO ABX Diagnosis Primary Impression: UTI Additional Impression: Brandon Padilla' contraction Patient Instructions: General Instructions, Urinary Tract Infection in (ED) Scripts Nitrofurantoin Monohydrate Macrocrystals (Macrobid)100 Mg [id number] Mg PO BID #14 CAP Prov:Tye Broderick MD 06/19/17 Disposition: 01 DISCHARGE HOME Condition: Stable Tye Broderick MD Jun 19, 2017 19:56
[2017-06-19 20:09] LABS: BLOOD, URINE NEG (NEG); GLUCOSE,URINE NEG (NEG); KETONE, URINE NEG (NEG); NITRITE,URINE NEG (NEG)
[2017-06-19 20:23] LABS: URINE COLOR YELLOW (YELLW/STRAW)
[2017-06-19 20:25] LABS: MUCUS URINE MOD /lpf (OCC)
[2017-06-19 20:26] LABS: BACTERIA, URINE MOD /hpf; CALCIUM OXALATE CRYSTALS,URINE MANY /hpf; COMMENT (UR) CULTURE INDICATED; CULTURE IF INDICATED CULTURE INDICATED; SQUAMOUS EPITHELIAL CELL URINE > 8 /hpf (0-5)
[2017-06-19] MEDS ORDERED: MACR100C2 PO (20:29)
[2017-06-19] MEDS ORDERED: NITROFURANTOIN MONOHYD MACROCR 100 MG CAP PO ONE (20:30)
[2017-06-19 20:55] VITALS: BP 122/77; PULSE 81; RESP 16; O2SAT 97
== END 2017-06-19 21:19 | disposition home or self-care (01) ==
LOC: PHED 19:30
DX: O23.40 Unspecified infection of urinary tract in pregnancy, unspecified trimester (principal); B96.89 Other specified bacterial agents as the cause of diseases classified elsewhere; O47.9 False labor, unspecified; Z3A.00 Weeks of gestation of pregnancy not specified
CPT/HCPCS: 81001; 87086; 99284

== ENCOUNTER 2017-07-01 16:01 | Observation (INO) | payer MEDICAID ==
[~2017-07-01] VITALS: Ht 154.9 cm; Wt 89.8 kg
[~2017-07-01 16:01] MED LIST changes: +MACR100C2 PO
--- NOTE | 2017-07-01 17:29 | PD.PN.STU ---
Subjective Remarks 42 yo at 30 weeks with ROSALINO 09/06/17 by LMP and US presents today after a fall at work. This past weekend she became homeless and after several days of little sleep and limited food intake she felt lightheaded and fatigued while at work. She subsequently tripped over the bread rack and fell directly onto her abdomen and twisted her right ankle. This occurred at [facility] around 11:30. She stayed the rest of her shift. She has had right sided low back pain that extends to her low abdomen since the fall. She denies any vaginal bleeding, contractions, leakage of fluid. She reports decreased movement since the fall. She has been receiving care with Joana Dennis. Her last appointment was one month ago. She had an appointment last week but she was unable to make it due to transportation. Past Medical History Bipolar depression with last visit to mental health provider September 2016. She is unsure of the medication she was previously taking. She stopped taking it as soon as she learned she was . Right sided sciatica Medications None Allergies NKDA Surgical History Cholecystectomy Right shoulder debridement Social History Denies tobacco, alcohol or substance abuse Objective Vitals GENERAL: Well-nourished, well-developed patient. no acute distress. Laying comfortably in bed. SKIN: Warm and dry. HEAD: Normocephalic. EYES: No scleral icterus. No injection or drainage. NECK: Supple, trachea midline. No JVD or lymphadenopathy. CARDIOVASCULAR: Regular rate and rhythm without murmurs, gallops, or rubs. RESPIRATORY: Breath sounds equal bilaterally. No accessory muscle use. GASTROINTESTINAL: Abdomen soft, non-tender. Gavid abdomen. EXTREMITIES: Bilateral 1+ pedal edema. NEUROLOGICAL: Awake, alert, and oriented x 3. Non-focal. A/P Assessment and Plan 1. Rule out abruption - continuous monitoring - admit to observation 2. Ankle Sprain - Rest, ice, compression, elevation 3. Homeless - consult case management for assistance regarding resources 42 y/o with IUP at 30.5 wks by stated ROSALINO who presents s/p fall at work where she hit side of abdomen at 11:30 am. Pt twisted ankle as well. No contractions, vb, lof. +FM Significant medical/social history: AMA, h/o bipolar depression, no meds currently, homeless PNC with Joana Dennis at [facility]. no s/sx labor, abruption, distress cat 1 tracing admit observation, continuous monitoring, social welfare research worker consult in am Attestation The exam, history, and the medical decision-making described in the above note were completed with the assistance of the medical student and resident physician. I reviewed and agree with the findings presented. I attest that I had a [id number] encounter with the patient on the same day, and personally performed and documented my assessment and findings in the medical record. Jaimie Scales Jul 01, 2017 17:29 Elena Contreras MD Jul 01, 2017 17:41
[2017-07-01] MEDS: MULTIVIT/MIN/PREN/FOL AC/IRON PRENATAL TAB PO SCH (18:33)
[2017-07-01] MEDS: ACETAMINOPHEN 325 MG TAB PO PRN (18:37)
[2017-07-01 19:56] VITALS: RESP 18; TEMP 97.5
[2017-07-01 20:04] VITALS: BP 128/69; PULSE 73
[2017-07-02] MEDS: ACETAMINOPHEN 325 MG TAB PO PRN (06:32)
--- NOTE | 2017-07-02 08:01 | PD.OB.ANTE ---
Subjective Diagnosis: (1) Abdominal pain affecting Diagnosis: Principal (2) Psychiatric diagnosis Diagnosis: Secondary (3) Homelessness Diagnosis: Principal Interval History Patient was complaining of foot pain. She also complains of pins and needles from her elbow down all her fingers because of the way she slept on her arms. Antepartum ROS: Denies: New complaints, Loss of fluid, Vaginal bleeding, movement normal, Contractions (Tyson Fu MD R2) Objective Vital Signs Vital Signs Date Time Temp Pulse Resp B/P Pulse Ox O2 Delivery O2 Flow Rate FiO2 07/01/17 20:04 73 128/69 07/01/17 19:56 97.5 18 Physical Exam GENERAL: Well-nourished, well-developed patient. CARDIOVASCULAR: Regular rate and rhythm without murmurs, gallops, or rubs. RESPIRATORY: Breath sounds equal bilaterally. No accessory muscle use. ABDOMEN/GI: Abdomen soft, non-tender. Fundus: c/w 30 week gestation GENITOURINARY: External Genitalia: Uterine Contractions: none FHT's: Category: Cat I Baseline: 130 Reactive: reactive Variability: moderate Decels: none EXTREMITIES: No cyanosis or edema, non-tender, without signs of DVT. (Tyson Fu MD R2) Assessment and Plan Problem List: (1) Abdominal pain affecting Status: Acute (2) Homelessness Status: Acute (3) Psychiatric diagnosis Status: Acute Assessment and Plan 42 yo at 30 weeks with ROSALINO 09/06/17 by LMP and US presents yesterday with abdominal pain and ankle pain after a fall at work. This past weekend she became homeless and after several days of little sleep and limited food intake she felt lightheaded and fatigued while at work. She has been receiving care with Joana [facility]. 1. Abdominal trauma in Continue to monitor vitals, tocometry, heart rate Observation Continue vitamin OB ultrasound 2. Homelessness and psychiatric conditions Case management consult to help patient find a home 3. Limited [facility] OB ultrasound w/d/w Dr. Contreras. (Tyson Fu MD R2) Assessment and Plan The exam, history, and the medical decision-making described in the above note were completed with the assistance of the resident provider. I reviewed and agree with the findings presented. I attest that I had a [id number] encounter with the patient on the same day, and personally performed and documented my assessment and findings in the medical record. plan: case management for resources, obtain PNR from [facility] /s with diagnostic (Elena Contreras MD) Tyson Fu MD R2 Jul 02, 2017 08:01 Elena Contreras MD Jul 02, 2017 09:09
[2017-07-02 08:31] VITALS: BP 116/57; PULSE 63; RESP 20; TEMP 97.7
--- NOTE | 2017-07-02 09:20 | HHI.PR ---
Addendum to Inpatient Note Addendum Reason: Additional Documentation Additional Information Patient found to have tenderness over the right sided medial malleolus. Ordering x-ray of right ankle. Tsyon Fu MD R2 Jul 02, 2017 09:20
[2017-07-02] MEDS: MULTIVIT/MIN/PREN/FOL AC/IRON PRENATAL TAB PO SCH (09:45)
[2017-07-02] MEDS ORDERED: DOCUSATE SODIUM 50 MG/SENNA 8.6 MG TAB PO SCH (10:30)
--- NOTE | 2017-07-02 12:20 | RADRPT ---
EXAM DATE/TIME: 07/02/2017 11:16 [place] COMPARISON: ANKLE RIGHT COMPLETE ([id number]), April 20, 2014, 14:50. INDICATIONS : Patient fell and twisted ankle MEDICAL HISTORY : . SURGICAL HISTORY : None. ENCOUNTER: Initial ACUITY: 1 day PAIN SCORE: 3/10 LOCATION: Right Lateral ankle FINDINGS: Three view exam was performed of the right ankle. The bony structures are in normal alignment. No e vidence of fracture, dislocation, or soft tissue swelling. The ankle mortise is intact. No radiopaq ue foreign bodies are seen. Bony mineralization is normal. CONCLUSION: No acute disease. Duane Becerril MD on July 02, 2017 at 12:18 Board Certified Radiologist. This report was verified electronically.
--- NOTE | 2017-07-02 16:28 | HHI.DCPOC ---
Discharge Care Plan Diagnosis: (1) Homelessness (2) Abdominal pain affecting (3) Psychiatric diagnosis Report Symptoms to Your Doctor -Temperature above 100.5 degrees -Redness, of incision or excessive or foul smelling drainage -Unusual pain or calf pain -Increased vaginal bleeding -Painful or difficulty urinating -Feelings of extreme sadness or anxiety after 2 weeks Goals to Promote Your Health * To prevent worsening of your condition and complications, please follow up with your doctor. * To maintain your health at the optimal level, please follow your doctor's instructions. Directions to Meet Your Goals Take your medications as prescribed Follow your dietary instruction Follow activity as directed Ensure plenty of rest for recovery Drink fluids for hydration Keep your appointments as scheduled Take your immunizations and boosters as scheduled If your symptoms worsen call your PCP, if no PCP go to Urgent Care Center or Emergency Room Smoking is Dangerous to Your Health. Avoid second hand smoke Call the 24-hour crisis hotline for domestic abuse at Tyson Fu MD R2 Jul 02, 2017 16:28
--- NOTE | 2017-07-02 16:35 | PD.OB.ANTE ---
Subjective Diagnosis: (1) Abdominal pain affecting (2) Homelessness (3) Psychiatric diagnosis Interval History Patient reports improved ankle pain. Ambulating well. Reports good movement. Denies ctxs/LOf/VB. Objective Vital Signs Vital Signs Date Time Temp Pulse Resp B/P Pulse Ox O2 Delivery O2 Flow Rate FiO2 07/02/17 08:31 97.7 63 20 116/57 07/01/17 20:04 73 128/69 07/01/17 19:56 97.5 18 Physical Exam GENERAL: Well-nourished, well-developed patient. CARDIOVASCULAR: Regular rate and rhythm without murmurs, gallops, or rubs. RESPIRATORY: Breath sounds equal bilaterally. No accessory muscle use. ABDOMEN/GI: Abdomen soft, non-tender. Fundus: [-] GENITOURINARY: External Genitalia: intact and normal in appearance Cervix: [-] Dilatation: [-] Effacement: [-] Station: [-] Presentation: [-] Membranes: [-] Uterine Contractions: [-] FHT's: Category: [1] Baseline: [120s] Reactive: [reactive] Variability: [moderate] Decels: [-none EXTREMITIES: No cyanosis or edema, non-tender, without signs of DVT. Assessment and Plan Problem List: (1) Abdominal pain affecting Status: Acute Assessment & Plan: IUP at 30w 4d, s/p fall yesterday. Ankle xray- no fractures , swelling, or dislocation noted. US today- breech presentation, placenta- anterior/posterior/fundal, appears intact, no previa, CAROLYN 13cm, no anomalies noted. Close f/u encouraged. All questions answered. (2) Homelessness Status: Acute (3) Psychiatric diagnosis Status: Acute Assessment and Plan The exam, history, and the medical decision-making described in the above note were completed with the assistance of the resident provider. I reviewed and agree with the findings presented. I attest that I had a [id number] encounter with the patient on the same day, and personally performed and documented my assessment and findings in the medical record. plan: case management for resources, obtain PNR from [facility] u/s with diagnostic Gladys Machado MD Jul 02, 2017 16:35
== END 2017-07-02 17:38 | disposition home or self-care (01) ==
LOC: HOBED 16:01 → H2EA 17:18
PROVIDERS: ADMIT Obstetrics & Gynecology; ATTEND Obstetrics & Gynecology
DX: O26.893 Other specified pregnancy related conditions, third trimester (principal); O36.8130 Decreased fetal movements, third trimester, not applicable or unspecified; O09.523 Supervision of elderly multigravida, third trimester; O09.33 Supervision of pregnancy with insufficient antenatal care, third trimester; R42 Dizziness and giddiness; M54.5 Low back pain; M54.31 Sciatica, right side; F31.9 Bipolar disorder, unspecified; M79.671 Pain in right foot; W01.0XXA Fall on same level from slipping, tripping and stumbling without subsequent striking against object, initial encounter; Y99.0 Civilian activity done for income or pay; Z3A.30 30 weeks gestation of pregnancy; Z59.0 Homelessness
CPT/HCPCS: 73610; 76816; 99285; G0378

== ENCOUNTER 2017-07-16 21:49 | Observation (INO) | payer MEDICAID ==
[~2017-07-16] VITALS: Ht 154.9 cm; Wt 90.0 kg
[~2017-07-16 21:49] MED LIST changes: -MACR100C2 PO
--- NOTE | 2017-07-16 22:58 | PD ---
HPI Chief Complaint N/V, cramping, frequent urination Travel History International Travel<30 Days: No Contact w/Intl Traveler<30Days: No Known Affected Area: No History of Present Illness HPI 42y/o , IUP at 32.4 PNC complicated by: 1. AMA 2. Homelessness: has called "a bunch" of shelters, but not been able to get anyone to accept her. 3. Lapse of PNC Patient presents c/o onset of cramping and abdominal pain and spotting 2h ago, she also reports associated frequent urination. There are no aggravating or alleviating factors and no attempted treatments. She denies any vaginal bleeding , LOF. She reports she has had N/V all day today and not been able to tolerate any po. She reports she last ate 2d ago. She reports good FM. She feels like she is dehydrated. She reports last intercourse was 3w ago and denies any STDs or drug abuse. Weeks Gestation: 32 Para: 3 : 2 History Past Medical History Narrative Medical Denies Obstetric History Obstetric History FT x3 Denies abnl PAP or STD Past Surgical History Narrative Surgical Cholecystectomy Family History Narrative Family History HTN Social History Alcohol Use: No Tobacco Use: No Substance Abuse: No Allergies-Medications (Allergen,Severity, Reaction): Coded Allergies: No Known Allergies (Unverified , 05/17/17) Home Meds Active Scripts Vit-Iron Carbonyl ( Plus Iron 29-1 mg) 1 Tab Tab, 1 TAB PO DAILY for Nutritional Supplement, #30 TAB 9 Refills Prov:Jarod Hester MD 01/02/17 Review of Systems Except as stated in HPI: all other systems reviewed are Neg Gastrointestinal: Nausea, Vomiting, Abdominal Pain Genitourinary: Frequency Physical Exam Narrative GENERAL: Well-nourished, well-developed patient. SKIN: Warm and dry. HEAD: Normocephalic and atraumatic. EYES: No scleral icterus. No injection or drainage. ENT: No nasal drainage noted. Mucous membranes pink. Airway patent. NECK: Supple, trachea midline. No JVD. CARDIOVASCULAR: Regular rate and rhythm without murmurs, gallops, or rubs. RESPIRATORY: Breath sounds equal bilaterally. No accessory muscle use. BREASTS: deferred ABDOMEN/GI: Abdomen soft, non-tender, bowel sounds present, no rebound, no guarding Gravid GENITOURINARY: normal rugae, no cervical/vaginal masses External Genitalia: intact and normal in appearance BUS glands: [nl] Cervix: [nl] Dilatation: [cl] Effacement: [thick] Station: [high] Presentation: [] Membranes: [intact] Uterine Contractions: [no regular ctx] FHT's: Category: [1] Baseline: [130] Reactive: [y] Variability: [mod] Decels: [n] EXTREMITIES: No cyanosis or edema. BACK: Nontender without obvious deformity. No CVA tenderness. NEUROLOGICAL: Awake and alert. Motor and sensory grossly within normal limits. Five out of 5 muscle strength in all muscle groups. Normal speech. PSYCH: grossly normal memory/affect ROM: grossly normal ROM, gait, muscle strength Data Data Orders Orders Ob (2e) Additional Admit Info (07/16/17 22:37) MDM Narrative Course / MDM A/P: 42y/o 1. IUP at 32.4 2. contractions/cramping: no evidence of cervical dilation, will check FFN, IVF given. 3. UA: pending 4. Homeless: will admit overnight for observation, SW consult in am, check UDS 5. Lapse in PNC 6. N/V: unable to tolerate po today, will check labs, IVF, antiemetics 7. wellbeing: reassuring testing Dina Johnson MD Jul 16, 2017 22:58
[2017-07-16] MEDS ORDERED: ONDANSETRON HCL 4 MG/2 ML VIAL IV PRN (23:00)
[2017-07-16] MEDS ORDERED: SODIUM CHLORIDE 0.9% FLUSH 10 ML FLUSH IV FLUSH PRN (23:00)
[2017-07-16] MEDS ORDERED: ONDANSETRON ODT 4 MG TAB PO PRN (23:00)
[2017-07-16] MEDS ORDERED: SODIUM CHLORIDE 0.9% FLUSH 10 ML FLUSH IV FLUSH SCH (23:00)
[2017-07-16] MEDS ORDERED: ACETAMINOPHEN 325 MG TAB PO PRN (23:00)
[2017-07-16 23:23] LABS: AUTOMATED NEUTROPHIL # 4.7 TH/MM3 (1.8-7.7); BASOPHIL % 0.4 % (0.0-2.0); EOSINOPHIL # 0.1 TH/MM3 (0-0.4); EOSINOPHIL % 0.8 % (0.0-4.0); HEMATOCRIT 32.7 % (35.0-46.0); HEMO FLAGS DIFF FINAL; LYMPH % 23.8 % (9.0-44.0); LYMPHOCYTE # 1.7 TH/MM3 (1.0-4.8); MEAN CELL VOLUME 73.9 FL (80.0-100.0); MEAN CORPUSCULAR HEMOGLOBIN 23.7 PG (27.0-34.0); MONO % 10.7 % (0.0-8.0); NEUT % 64.3 % (16.0-70.0); PLATELET COUNT 296 TH/MM3 (150-450); RED BLOOD COUNT 4.43 MIL/MM3 (4.00-5.30); RED CELL DISTRIBUTION WIDTH 14.9 % (11.6-17.2); WHITE BLOOD COUNT 7.3 TH/MM3 (4.0-11.0)
[2017-07-16 23:29] LABS: BACTERIA, URINE RARE /hpf; BLOOD, URINE NEG (NEG); COMMENT (UR) CULT NOT INDICATED; CULTURE IF INDICATED CULT NOT INDICATED; GLUCOSE,URINE NEG (NEG); KETONE, URINE NEG (NEG); NITRITE,URINE NEG (NEG); PH, URINE 6.5 (5.0-8.5); URINE COLOR LIGHT-YELLOW (YELLW/STRAW)
[2017-07-16 23:54] VITALS: RESP 18
[2017-07-16 23:56] LABS: INDIRECT BILIRUBIN 0.1 MG/DL (0.0-0.8); TOTAL BILIRUBIN ADULT 0.2 MG/DL (0.2-1.0)
[2017-07-17] VITALS: BP 132/73; PULSE 64; TEMP 97.8
--- NOTE | 2017-07-17 00:02 | HHI.HP ---
History & Physical H&P Patient Name: Dona St Unit Number: [id number] Date of : 1975 Patient Status: Admitted Inpatient (obs) Attending Doctor: Dina Johnson MD HPI HPI Chief Complaint N/V, cramping, frequent urination Travel History International Travel<30 Days: No Contact w/Intl Traveler<30Days: No Known Affected Area: No History of Present Illness HPI 42y/o , IUP at 32.4 PNC complicated by: 1. AMA 2. Homelessness: has called "a bunch" of shelters, but not been able to get anyone to accept her. 3. Lapse of PNC Patient presents c/o onset of cramping and abdominal pain and spotting 2h ago, she also reports associated frequent urination. There are no aggravating or alleviating factors and no attempted treatments. She denies any vaginal bleeding , LOF. She reports she has had N/V all day today and not been able to tolerate any po. She reports she last ate 2d ago. She reports good FM. She feels like she is dehydrated. She reports last intercourse was 3w ago and denies any STDs or drug abuse. Weeks Gestation: 32 Para: 3 : 2 History (Limited) History Past Medical History Narrative Medical Denies Obstetric History Obstetric History FT x3 Denies abnl PAP or STD Past Surgical History Narrative Surgical Cholecystectomy Family History Narrative Family History HTN Social History Alcohol Use: No Tobacco Use: No Substance Abuse: No Allergies-Medications Allergies-Medications (Allergen,Severity, Reaction): Coded Allergies: No Known Allergies (Unverified , 05/17/17) Home Meds Active Scripts Vit-Iron Carbonyl ( Plus Iron 29-1 mg) 1 Tab Tab, 1 TAB PO DAILY for Nutritional Supplement, #30 TAB 9 Refills Prov:Jarod Hester MD 01/02/17 ROS Review of Systems Except as stated in HPI: all other systems reviewed are Neg Gastrointestinal: Nausea, Vomiting, Abdominal Pain Genitourinary: Frequency Physical Exam Physical Exam Narrative GENERAL: Well-nourished, well-developed patient. SKIN: Warm and dry. HEAD: Normocephalic and atraumatic. EYES: No scleral icterus. No injection or drainage. ENT: No nasal drainage noted. Mucous membranes pink. Airway patent. NECK: Supple, trachea midline. No JVD. CARDIOVASCULAR: Regular rate and rhythm without murmurs, gallops, or rubs. RESPIRATORY: Breath sounds equal bilaterally. No accessory muscle use. BREASTS: deferred ABDOMEN/GI: Abdomen soft, non-tender, bowel sounds present, no rebound, no guarding Gravid GENITOURINARY: normal rugae, no cervical/vaginal masses External Genitalia: intact and normal in appearance BUS glands: [nl] Cervix: [nl] Dilatation: [cl] Effacement: [thick] Station: [high] Presentation: [] Membranes: [intact] Uterine Contractions: [no regular ctx] FHT's: Category: [1] Baseline: [130] Reactive: [y] Variability: [mod] Decels: [n] EXTREMITIES: No cyanosis or edema. BACK: Nontender without obvious deformity. No CVA tenderness. NEUROLOGICAL: Awake and alert. Motor and sensory grossly within normal limits. Five out of 5 muscle strength in all muscle groups. Normal speech. PSYCH: grossly normal memory/affect ROM: grossly normal ROM, gait, muscle strength Data Data Data Orders Orders Ob (2e) Additional Admit Info (07/16/17 22:37) MDM MDM Narrative Course / MDM A/P: 42y/o 1. IUP at 32.4 2. contractions/cramping: no evidence of cervical dilation, will check FFN, IVF given. 3. UA: pending 4. Homeless: will admit overnight for observation, SW consult in am, check UDS 5. Lapse in PNC 6. N/V: unable to tolerate po today, will check labs, IVF, antiemetics 7. wellbeing: reassuring testing Dina Johnson MD Jul 16, 2017 22:58 Dina Johnson MD Jul 17, 2017 00:02
[2017-07-17 02:51] LABS: BICARBONATE 20.8 MEQ/L (21.0-32.0); POTASSIUM 3.8 MEQ/L (3.5-5.1)
[2017-07-17 07:27] VITALS: RESP 20; TEMP 99.1
[2017-07-17 07:30] VITALS: BP 134/87; PULSE 80
--- NOTE | 2017-07-17 08:40 | PD.OB.ANTE ---
Subjective Interval History No acute issues overnight. Vitals are stable, patient remains afebrile. She is no longer feeling contractions. She denies any vaginal bleeding or discharge. No gush or leaking of fluid. Positive movement. She has a good appetite and is tolerating PO. Antepartum ROS: Reports: movement normal, Denies: New complaints, Loss of fluid, Vaginal bleeding, Contractions Objective Vital Signs Vital Signs Date Time Temp Pulse Resp B/P (MAP) Pulse Ox O2 Delivery O2 Flow Rate FiO2 07/17/17 07:30 80 134/87 (103) 07/17/17 07:27 20 07/17/17 07:27 99.1 07/17/17 00:00 97.8 64 132/73 (92) 07/17/17 00:00 97.8 64 132/73 (92) 07/16/17 23:54 18 Lab & Micro Results Test 07/16/17 22:30 White Blood Count 7.3 TH/MM3 Red Blood Count 4.43 MIL/MM3 Hemoglobin 10.5 GM/DL Hematocrit 32.7 % Mean Corpuscular Volume 73.9 FL Mean Corpuscular Hemoglobin 23.7 PG Mean Corpuscular Hemoglobin Concent 32.0 % Red Cell Distribution Width 14.9 % Platelet Count 296 TH/MM3 Mean Platelet Volume 8.7 FL Neutrophils (%) (Auto) 64.3 % Lymphocytes (%) (Auto) 23.8 % Monocytes (%) (Auto) 10.7 % Eosinophils (%) (Auto) 0.8 % Basophils (%) (Auto) 0.4 % Neutrophils # (Auto) 4.7 TH/MM3 Lymphocytes # (Auto) 1.7 TH/MM3 Monocytes # (Auto) 0.8 TH/MM3 Eosinophils # (Auto) 0.1 TH/MM3 Basophils # (Auto) 0.0 TH/MM3 CBC Comment DIFF FINAL Differential Comment Urine Color LIGHT-YELLOW Urine Turbidity CLEAR Urine pH 6.5 Urine Specific [place] 1.003 Urine Protein NEG mg/dL Urine Glucose (UA) NEG mg/dL Urine Ketones NEG mg/dL Urine Occult Blood NEG Urine Nitrite NEG Urine Bilirubin NEG Urine Urobilinogen LESS THAN 2.0 MG/DL Urine Leukocyte Esterase NEG Urine RBC 1 /hpf Urine WBC LESS THAN 1 /hpf Urine Bacteria RARE /hpf Microscopic Urinalysis Comment CULT NOT INDICATED Fibronectin NEGATIVE Blood Urea Nitrogen 7 MG/DL Creatinine 0.46 MG/DL Random Glucose 72 MG/DL Total Protein 6.0 GM/DL Albumin 1.9 GM/DL Calcium Level 8.8 MG/DL Alkaline Phosphatase 127 U/L Aspartate Amino Transf (AST/SGOT) 17 U/L Alanine Aminotransferase (ALT/SGPT) 15 U/L Total Bilirubin 0.2 MG/DL Direct Bilirubin 0.1 MG/DL Sodium Level 138 MEQ/L Potassium Level 3.8 MEQ/L Chloride Level 107 MEQ/L Carbon Dioxide Level 20.8 MEQ/L Anion Gap 10 MEQ/L Estimat Glomerular Filtration Rate 150 ML/MIN Indirect Bilirubin 0.1 MG/DL Urine Opiates Screen NEG Urine Barbiturates Screen NEG Urine Amphetamines Screen NEG Urine Benzodiazepines Screen NEG Urine Cocaine Screen NEG Urine Cannabinoids Screen NEG Physical Exam GENERAL: Well-nourished, well-developed patient. CARDIOVASCULAR: Regular rate and rhythm without murmurs, gallops, or rubs. RESPIRATORY: Breath sounds equal bilaterally. No accessory muscle use. ABDOMEN/GI: Abdomen soft, non-tender. Fundus: 32 GENITOURINARY: External Genitalia: intact and normal in appearance Cervix: posterior Dilatation: 0 Effacement: 0 Station: -3 Membranes: intact Uterine Contractions: none FHT's: Category: I Baseline: 130 Reactive: + Variability: moderate Decels: none EXTREMITIES: No cyanosis or edema, non-tender, without signs of DVT. Assessment and Plan Assessment and Plan 42 year old at 32-5/7 weeks gestation. 1. IUP- Category I tracing, reassuring. 2. contractions/cramping: no contractions on toco, FFN negative. 3. UA wnl 4. Homeless: UDS negative so far, case management consulted for assistance with social aspects of care. dw Dr. Johnson and Dr. Chavez R1 Courtney Scanlon MD, R3 Jul 17, 2017 08:40
[2017-07-17] MEDS ORDERED: MULTIVIT/MIN/PREN/FOL AC/IRON PRENATAL TAB PO SCH (09:00)
--- NOTE | 2017-07-17 11:18 | HHI.DCPOC ---
Discharge Care Plan Diagnosis: (1) [place]' contraction Report Symptoms to Your Doctor -Temperature above 100.5 degrees -Redness, of incision or excessive or foul smelling drainage -Unusual pain or calf pain -Increased vaginal bleeding -Painful or difficulty urinating -Feelings of extreme sadness or anxiety after 2 weeks Goals to Promote Your Health * To prevent worsening of your condition and complications * To maintain your health at the optimal level Directions to Meet Your Goals Take your medications as prescribed Follow your dietary instruction Follow activity as directed Ensure plenty of rest for recovery Drink fluids for hydration Keep your appointments as scheduled Take your immunizations and boosters as scheduled If your symptoms worsen call your PCP, if no PCP go to Urgent Care Center or Emergency Room Smoking is Dangerous to Your Health. Avoid second hand smoke Call the 24-hour crisis hotline for domestic abuse at Courtney Scanlon MD, R3 Jul 17, 2017 11:18
[2017-07-21 10:42] LABS: BATH SALTS (MDPV) UR NEG (NEG); ECSTASY (MDMA) UR NEG (NEG); GABAPENTIN UR NEG (NEG); HEROIN (6-ACETYLMORPHINE) UR NEG (NEG); HYDROMORPHONE U NEG (NEG); K2 SPICE UR NEG (NEG); OBMETHADONE UR NEG (NEG); PHENCYCLIDINE URINE NEG (NEG)
== END 2017-07-17 13:54 | disposition home or self-care (01) ==
LOC: HOBED 21:49 → H2EB 22:38
PROVIDERS: ADMIT Obstetrics & Gynecology; ATTEND Obstetrics & Gynecology
DX: O47.03 False labor before 37 completed weeks of gestation, third trimester (principal); O99.343 Other mental disorders complicating pregnancy, third trimester; F41.9 Anxiety disorder, unspecified; Z3A.32 32 weeks gestation of pregnancy; Z59.0 Homelessness
CPT/HCPCS: 59025; 80048; 80076; 80307; 81001; 82731; 85025; 99285; G0378; G0481

== ENCOUNTER 2017-07-28 19:29 | Emergency (ER) | payer MEDICAID ==
[~2017-07-28] VITALS: Ht 154.9 cm; Wt 93.5 kg
[2017-07-28 19:31] VITALS: BP 157/74; PULSE 79; RESP 16; TEMP 98.6; O2SAT 97
--- NOTE | 2017-07-28 19:45 | PD ---
HPI . cold/coughing for about 3 days Chief Complaint: Cold / Flu Symptoms Time Seen by Provider: 19:45 Travel History International Travel<30 days: No Contact w/Intl Traveler<30days: No Traveled to known affect area: No History of Present Illness HPI 42 yr old female and 1 who is 34 weeks here with c/o coughing and facial pressure for 4 days. She says that she was treated in another hospital with penicillin, however did not improve her symptoms. She is still reporting frequent coughing. She also has some intermittent wheezing. She denies any chest pain or shortness of breath. Her [employer] ARCHITECT advised her to take Sudafed, which she has not yet done. PFSH Past Medical History Bipolar Disorder: Yes Anxiety: Yes Depression: Yes Cardiovascular Problems: No Diabetes: No Diminished Hearing: No Headaches: Yes Musculoskeletal: Yes (sciatica) Neurologic: Yes (carple tunnel bilat) Psychiatric: Yes Immunizations Current: Yes Migraines: Yes Seizures: No Tetanus Vaccination: Unknown Influenza Vaccination: No ?: : 5 Para: 3 Miscarriage: 0 : 1 Past Surgical History Cholecystectomy: Yes Social History Alcohol Use: No Tobacco Use: No Substance Use: No Allergies-Medications (Allergen,Severity, Reaction): Coded Allergies: No Known Allergies (Unverified , 05/17/17) Reported Meds & Prescriptions Reported Meds & Active Scripts Active Prednisone 50 Mg Tab 50 Mg PO DAILY 5 Days Plus Iron 29-1 mg ( Vit-Iron Carbonyl) 1 Tab Tab 1 Tab PO DAILY Reported [Penicillin] 50 Mg PO Q4HR Review of Systems General / Constitutional: No: Fever Eyes: No: Visual changes HENT: Positive: Congestion, No: Headaches Cardiovascular: No: Chest Pain or Discomfort Respiratory: Positive: Cough, Wheezing, No: Shortness of Breath Gastrointestinal: No: Abdominal Pain Genitourinary: No: Dysuria Musculoskeletal: No: Pain Skin: No Rash Neurologic: No: Weakness Psychiatric: No: Depression Endocrine: No: Polydipsia Hematologic/Lymphatic: No: Easy Bruising Physical Exam Narrative GENERAL: AAO x 3, no acute distress, Well-nourished, well-developed patient. SKIN: Warm and dry. No visible rashes or bruising. HEAD: Normocephalic and atraumatic. EYES: No scleral icterus. No injection or drainage. ENT: No nasal drainage noted. Mucous membranes pink. Airway patent. Mild clear effusions b/l TM NECK: Supple, trachea midline. No JVD. CARDIOVASCULAR: Regular rate and rhythm without murmurs, gallops, or rubs. RESPIRATORY: Breath sounds equal bilaterally. + wheezing GASTROINTESTINAL: visual inspection: EXTREMITIES: No cyanosis or edema. BACK: No obvious deformity. No CVA tenderness. NEURO: CN II-12 intact, PSYCH: AAO x 3, normal affect. Data Data Last Documented VS Vital Signs Date Time Temp Pulse Resp B/P (MAP) Pulse Ox O2 Delivery O2 Flow Rate FiO2 07/28/17 20:10 97 21 07/28/17 20:05 81 18 128/77 (94) Room Air 07/28/17 19:31 98.6 Orders Orders Albuterol Neb (Albuterol Neb) (07/28/17 20:00) [facility] Medical Decision Making Medical Screen Exam Complete: Yes Emergency Medical Condition: Yes Medical Record Reviewed: Yes Differential Diagnosis bronchitis, sinusitis, allergic rhinitis Narrative Course 42-year-old female with what appears to be bronchitis. I've done an examination and discussed the findings with my attending physician Dr. Ring. She recommends albuterol and prednisone at home. I discussed with the patient. I've advised follow-up with her [employer] ARCHITECT. I called Dr. Benavides, who will see the patient after we have administered breathing treatment. Diagnosis Primary Impression: Acute bronchitis Qualified Codes: J20.9 - Acute bronchitis, unspecified Patient Instructions: General Instructions Additional Instructions: As we discussed the cough can last 6-8 weeks. Take medications as prescribed. If you are a smoker, try to quit. Follow up with your primary care provider. If you develop sudden onset or worsening of shortness or breath, please go to the nearest emergency room. Med/Other Pt SpecificInfo: Prescription(s) given Scripts Prednisone (Prednisone) 50 Mg Tab 50 MG PO DAILY for 5 Days, TAB 0 Refills Prov: Martina Ring MD 07/28/17 Condition: Stable Terri Alcaraz Jul 28, 2017 19:45
[2017-07-28] MEDS ORDERED: RESP: ALBUTEROL 2.5 MG/3 ML NEB (SCH) NEB ONE (20:00)
[2017-07-28 20:05] VITALS: BP 128/77; PULSE 81; RESP 18; O2SAT 97
[2017-07-28] MEDS ORDERED: PENICILLIN PO (20:05)
[2017-07-28 20:10] VITALS: O2SAT 97
[2017-07-28] MEDS ORDERED: PRED50 PO (20:19)
--- NOTE | 2017-07-28 22:51 | PD ---
History of Present Illness Date Seen: Jul 28, 2017 Time Seen: 22:45 History of Present Illness Patient is a 42-year-old white female at 34 weeks goes to the [facility], who is sent up for the main ER for OB clearance. Patient was seen in main ER tonight for bad cold was diagnosed with bronchitis. She is getting a breathing treatment downstairs a prescription for steroids. She has a penicillin prescription at home already that she needs to continue. heart rate is reactive with good variability contractions are noted regularly only an occasional 1. For she is cleared from obstetric standpoint but needs to take her medication for her upper respiratory problem Senthil Benavides II, MD Jul 28, 2017 22:50
== END 2017-07-28 23:12 | disposition home or self-care (01) ==
LOC: NEPD 19:29 → HOBED 21:15
DX: O99.513 Diseases of the respiratory system complicating pregnancy, third trimester (principal); J20.9 Acute bronchitis, unspecified; Z3A.34 34 weeks gestation of pregnancy
CPT/HCPCS: 59025; 94664; 99283; J7613

== ENCOUNTER 2017-08-15 04:02 | Emergency (ER) | payer MEDICAID ==
[~2017-08-15 04:02] MED LIST changes: +PENICILLIN PO; +PRED50 PO
--- NOTE | 2017-08-15 05:11 | PD ---
HPI Chief Complaint ctx Travel History International Travel<30 Days: No Contact w/Intl Traveler<30Days: No Known Affected Area: No History of Present Illness HPI 42-year-old , IUP at 36 care: Complicated by history of homelessness, obesity, probable chronic hypertension, sciatica, anxiety, depression, bipolar depression The patient presents complaining of the onset of painful contractions that increased in intensity and frequency to now every 1-2 minutes. There are no aggravating or alleviating factors to the contractions and no attempted treatments. She reports the contractions have decreased since arrival. She denies any LOF or VB. She reports good movement. She has no other complaints or concerns tonight she denies any headache, visual changes, right upper quadrant or epigastric pain. Weeks Gestation: 36 Para: 2 : 5 History Past Medical History Narrative Medical homelessness, obesity, probable chronic hypertension, sciatica, anxiety, depression, bipolar depression Obstetric History Obstetric History EAB 1 SAB 2 2 full-term Past Surgical History Narrative Surgical Cholecystectomy, foot surgery Social History Alcohol Use: No Tobacco Use: No Substance Abuse: No Allergies-Medications (Allergen,Severity, Reaction): Coded Allergies: No Known Allergies (Unverified , 05/17/17) Home Meds Active Scripts Prednisone (Prednisone) 50 Mg Tab, 50 MG PO DAILY for 5 Days, TAB 0 Refills Prov:Martina Ring MD 07/28/17 Vit-Iron Carbonyl ( Plus Iron 29-1 mg) 1 Tab Tab, 1 TAB PO DAILY for Nutritional Supplement, #30 TAB 9 Refills Prov:Jarod Hester MD 01/02/17 Reported Medications [Penicillin] No Conflict Check, 50 MG PO Q4HR 07/28/17 Review of Systems Except as stated in HPI: all other systems reviewed are Neg Physical Exam Narrative GENERAL: Well-nourished, well-developed patient. SKIN: Warm and dry. HEAD: Normocephalic and atraumatic. EYES: No scleral icterus. No injection or drainage. ENT: No nasal drainage noted. Mucous membranes pink. Airway patent. NECK: Supple, trachea midline. No JVD. CARDIOVASCULAR: Regular rate and rhythm without murmurs, gallops, or rubs. RESPIRATORY: Breath sounds equal bilaterally. No accessory muscle use. BREASTS: Deferred ABDOMEN/GI: Abdomen soft, non-tender, bowel sounds present, no rebound, no guarding Gravid GENITOURINARY: External Genitalia: intact and normal in appearance. Normal BUS. Grossly normal rugated, no cervical or vaginal masses appreciated, physiologic discharge , SVE 1/thick/high/posterior FHT's: Baseline heart tones were in the 140s with moderate long-term variability, good accelerations, and no decelerations with a reactive NST and category 1 heart rate tracing EXTREMITIES: No cyanosis or edema. BACK: Nontender without obvious deformity. No CVA tenderness. NEUROLOGICAL: Awake and alert. Motor and sensory grossly within normal limits. Five out of 5 muscle strength in all muscle groups. Normal speech. Psychiatric: Grossly normal memory and affect Musculoskeletal: Grossly normal R Lopez, gait, muscle strength MDM Plan 42-year-old 1. IUP at 36.6 2. contractions: No evidence of labor with vaginal exam 1/thick /high and only rare contractions noted on tocometry. Encouraged good hydration. Strict labor precautions 3. Anxiety 4. Depression 5. Bipolar depression 6. Sciatica 7. well-being: Reassuring testing with reactive NST and category 1 heart rate tracing. kick counts daily 8. Protocol chronic hypertension: Preeclampsia precautions given, no signs or symptoms of preeclampsia today 9. Follow up with primary OB in 2-3 days Diagnosis Diagnosis: Primary Impression: 36 weeks gestation of Additional Impression: False labor before 37 completed weeks of gestation, third trimester Disposition: 01 DISCHARGE HOME Condition: Dina Amor MD Aug 15, 2017 05:11
== END 2017-08-15 05:38 | disposition home or self-care (01) ==
LOC: HOBED 04:02
DX: O47.03 False labor before 37 completed weeks of gestation, third trimester (principal); O99.213 Obesity complicating pregnancy, third trimester; Z87.39 Personal history of other diseases of the musculoskeletal system and connective tissue; Z86.59 Personal history of other mental and behavioral disorders; Z59.0 Homelessness; Z3A.36 36 weeks gestation of pregnancy
CPT/HCPCS: 59025

== ENCOUNTER 2017-08-21 13:05 | Inpatient (IN) | payer MEDICAID ==
[2017-08-21] VITALS (37 sets, daily range): BP systolic 111–183; BP diastolic 65–94; PULSE 55–115; RESP 14–18; TEMP 97.8–99; O2SAT 97–99
[~2017-08-21] VITALS: Ht 154.9 cm; Wt 98.0 kg
--- NOTE | 2017-08-21 14:20 | PD ---
HPI Chief Complaint right arm pain Date Seen: Aug 21, 2017 Time Seen: 14:07 Travel History International Travel<30 Days: No Contact w/Intl Traveler<30Days: No History of Present Illness HPI Ms. St is a 42 y/o female at 37/5 weeks presents due to right -sided pain. Pt states that early this morning she suddenly developed sharp pain on her right arm and right ribs. States the pain is worse on her right upper chest/abdomen and back. Occasional numbness, no tingling. States the pain is 10/10. Has not tried any medications for it. She states that sitting up improves the pain and that laying back and on her left side worsens the pain. Denies any vaginal bleeding, loss of fluids. Endorses movement. States she is having contractions every 5 minutes. Denies any complications during this . She follows with Joana Dennis. Denies any headaches, changes in vision, chest pain, SOB, leg pain. Is having some edema that started 2 weeks ago. Weeks Gestation: 37 Para: 3 : 5 : 1 History Past Medical History Medical History: Denies Significant Hx Obstetric History Obstetric History 1- term 2- term 3- term 4- in 2008 Past Surgical History Narrative Surgical Cholecystectomy Right arm surgery from cat scratch fever Foreign body in left foot Family History Family History: Negative Social History Alcohol Use: No Tobacco Use: No Substance Abuse: No Allergies-Medications (Allergen,Severity, Reaction): Coded Allergies: No Known Allergies (Unverified , 08/21/17) Home Meds Active Scripts Prednisone (Prednisone) 50 Mg Tab, 50 MG PO DAILY for 5 Days, TAB 0 Refills Prov:Martina Ring MD 07/28/17 Vit-Iron Carbonyl ( Plus Iron 29-1 mg) 1 Tab Tab, 1 TAB PO DAILY for Nutritional Supplement, #30 TAB 9 Refills Prov:Jarod Hester MD 01/02/17 Reported Medications [Penicillin] No Conflict Check, 50 MG PO Q4HR 07/28/17 Review of Systems General / Constitutional: Weight Gain, No: Fever, Weight Loss, Chills Eyes: No: Diploplia, Blurred Vision, Visual changes, Pain, Photophobia HENT: No: Headaches, Vertigo, Lightheadedness Cardiovascular: No: Irregular Rhythm, Chest Pain or Discomfort, Palpitations, Tachycardia, Syncope, Varicosities, Edema, Cyanosis Respiratory: No: Cough, Short of Breath, Other Gastrointestinal: Diarrhea, Abdominal Pain, No: Nausea, Vomiting Genitourinary: Urgency, Pelvic Pain, No: Frequency, Dysuria, Hematuria, Decreased Urinary Output, Oliguria, Discharge, Vaginal Bleeding Musculoskeletal: No: Limited ROM, Weakness, Cramping, Edema, Pain Skin: No Rash, No Itching, No Dryness, No Lumps, No Change in Pigmentation, No Change in Nails, No Alopecia, No Lesions Neurologic: No: Weakness, Dizziness, Syncope, Focal Abnormalities, Coordination Problem, Headache, Slurred Speech, Seizures Psychiatric: No: Depression, Suicidal Ideations, Homicidal Ideation Endocrine: No: Heat Intolerance, Cold Intolerance, Polydipsia, Polyuria, Other Physical Exam Narrative GENERAL: Well-nourished, well-developed patient. SKIN: Warm and dry. HEAD: Normocephalic and atraumatic. EYES: No scleral icterus. No injection or drainage. ENT: No nasal drainage noted. Mucous membranes pink. Airway patent. NECK: Supple, trachea midline. No JVD. CARDIOVASCULAR: Regular rate and rhythm without murmurs, gallops, or rubs. RESPIRATORY: Breath sounds equal bilaterally. No accessory muscle use. ABDOMEN/GI: Abdomen soft, non-tender, bowel sounds present, no rebound, no guarding Gravid to 37 weeks size GENITOURINARY: External Genitalia: intact and normal in appearance Cervix: posterior Dilatation: 1 Effacement: 0 Station: -3 Presentation: vertex Membranes: intact Uterine Contractions: occasional FHT's: Category: 1 Baseline: 140 Reactive: yes Variability: moderate Decels: none EXTREMITIES: No cyanosis or edema. BACK: Nontender without obvious deformity. No CVA tenderness. NEUROLOGICAL: Awake and alert. Motor and sensory grossly within normal limits. Five out of 5 muscle strength in all muscle groups. Normal speech. Data Data Vital Signs Reviewed: Yes [facility] Medical Record Reviewed: Yes Interpretation(s) 42 y/o at 37/5 weeks presents with RUQ and right arm pain. Edematous on exam, concern for preeclampsia Category 1 FHT Cervical exam: 1/0/-3 BP up to 170/70s -CBC, CMP, uric acid, urine protein/Cr ratio ordered -Serial BPs Narrative Course / MDM Platelets wnl, uric acid wnl AST 53, protein/Cr ratio = 0.3 Pt given IV hydralazine, BPs remaining elevated -Admit to labor and delivery -Induction with cytotec -Monitor vitals, Hydralazine PRN hypertension -Start IV Mag citrate for neuroprotection, monitor for toxicity -Plan for vaginal delivery, may need operative delivery depending on progression Diagnosis Diagnosis: Primary Impression: Qualified Codes: Z3A.37 - 37 weeks gestation of Additional Impression: Preeclampsia Qualified Codes: O14.93 - Unspecified pre-eclampsia, third trimester Anjel Jimenez MD, R2 Aug 21, 2017 14:20
[2017-08-21 15:28] LABS: HEMATOCRIT 36.1 % (35.0-46.0); MEAN CELL VOLUME 72.6 FL (80.0-100.0); MEAN CORPUSCULAR HEMOGLOBIN 22.8 PG (27.0-34.0); MEAN CORPUSCULAR HGB CONC 31.5 % (32.0-36.0); PLATELET COUNT 173 TH/MM3 (150-450); RED BLOOD COUNT 4.96 MIL/MM3 (4.00-5.30); RED CELL DISTRIBUTION WIDTH 17.6 % (11.6-17.2); REVIEW FLAG FINAL; WHITE BLOOD COUNT 8.3 TH/MM3 (4.0-11.0)
[2017-08-21 15:32] LABS: BACTERIA, URINE FEW /hpf; BLOOD, URINE SMALL (NEG); GLUCOSE,URINE NEG (NEG); HYALINE CAST, URINE 1 /lpf (RARE); KETONE, URINE NEG (NEG); MUCUS URINE FEW /lpf (OCC); NITRITE,URINE NEG (NEG); SQUAMOUS EPITHELIAL CELL URINE 5 /hpf (0-5); URINE COLOR YELLOW (YELLW/STRAW)
[2017-08-21 15:33] LABS: COMMENT (UR) CULT NOT INDICATED; CULTURE IF INDICATED CULT NOT INDICATED
[2017-08-21 15:36] LABS: ANION GAP 6 MEQ/L (5-15); AST (GOT) 53 U/L (15-37); BICARBONATE 25.1 MEQ/L (21.0-32.0); BLOOD UREA NITROGEN 9 MG/DL (7-18); CHLORIDE 108 MEQ/L (98-107); GLOMERULAR FILTRATION RATE 91 ML/MIN (>89); POTASSIUM 4.6 MEQ/L (3.5-5.1); SODIUM (NA) 139 MEQ/L (136-145); URIC ACID 5.3 MG/DL (2.6-6.0)
[2017-08-21 15:38] LABS: ALKALINE PHOSPHATASE 203 U/L (45-117); ALT (GPT) 26 U/L (10-53); TOTAL BILIRUBIN ADULT 0.3 MG/DL (0.2-1.0)
[2017-08-21] MEDS ORDERED: hydrALAZINE HCL 20 MG/ML VIAL IV PUSH ONE ×2 (15:45→17:15)
[2017-08-21] MEDS ORDERED: DOCUSATE SODIUM 100 MG CAP PO PRN (16:00)
[2017-08-21] MEDS ORDERED: ACETAMINOPHEN 325 MG TAB PO PRN (16:00)
[2017-08-21] MEDS ORDERED: SODIUM CHLORIDE 0.9% FLUSH 5 ML FLUSH IV FLUSH PRN (16:00)
[2017-08-21] MEDS ORDERED: CALCIUM GLUCONATE 10% 1 GM/10 ML VIAL IV PUSH PRN (16:00)
[2017-08-21] MEDS ORDERED: ONDANSETRON HCL 4 MG/2 ML VIAL IV PUSH PRN (16:00)
--- NOTE | 2017-08-21 16:13 | HHI.HP ---
History & Physical H&P HPI HPI Chief Complaint right arm pain Date Seen: Aug 21, 2017 Time Seen: 14:07 Travel History International Travel<30 Days: No Contact w/Intl Traveler<30Days: No History of Present Illness HPI Ms. St is a 42 y/o female at 37/5 weeks presents due to right -sided pain. Pt states that early this morning she suddenly developed sharp pain on her right arm and right ribs. States the pain is worse on her right upper chest/abdomen and back. Occasional numbness, no tingling. States the pain is 10/10. Has not tried any medications for it. She states that sitting up improves the pain and that laying back and on her left side worsens the pain. Denies any vaginal bleeding, loss of fluids. Endorses movement. States she is having contractions every 5 minutes. Denies any complications during this . She follows with Joana Dennis. Denies any headaches, changes in vision, chest pain, SOB, leg pain. Is having some edema that started 2 weeks ago. Weeks Gestation: 37 Para: 3 : 5 : 1 History (Limited) History Past Medical History Medical History: Denies Significant Hx Obstetric History Obstetric History 1- term 2- term 3- term 4- in 2008 Past Surgical History Narrative Surgical Cholecystectomy Right arm surgery from cat scratch fever Foreign body in left foot Family History Family History: Negative Social History Alcohol Use: No Tobacco Use: No Substance Abuse: No Allergies-Medications Allergies-Medications (Allergen,Severity, Reaction): Coded Allergies: No Known Allergies (Unverified , 08/21/17) Home Meds Active Scripts Prednisone (Prednisone) 50 Mg Tab, 50 MG PO DAILY for 5 Days, TAB 0 Refills Prov:Martina Ring MD 07/28/17 Vit-Iron Carbonyl ( Plus Iron 29-1 mg) 1 Tab Tab, 1 TAB PO DAILY for Nutritional Supplement, #30 TAB 9 Refills Prov:Jarod Hester MD 01/02/17 Reported Medications [Penicillin] No Conflict Check, 50 MG PO Q4HR 07/28/17 ROS Review of Systems General / Constitutional: Weight Gain, No: Fever, Weight Loss, Chills Eyes: No: Diploplia, Blurred Vision, Visual changes, Pain, Photophobia HENT: No: Headaches, Vertigo, Lightheadedness Cardiovascular: No: Irregular Rhythm, Chest Pain or Discomfort, Palpitations, Tachycardia, Syncope, Varicosities, Edema, Cyanosis Respiratory: No: Cough, Short of Breath, Other Gastrointestinal: Diarrhea, Abdominal Pain, No: Nausea, Vomiting Genitourinary: Urgency, Pelvic Pain, No: Frequency, Dysuria, Hematuria, Decreased Urinary Output, Oliguria, Discharge, Vaginal Bleeding Musculoskeletal: No: Limited ROM, Weakness, Cramping, Edema, Pain Skin: No Rash, No Itching, No Dryness, No Lumps, No Change in Pigmentation, No Change in Nails, No Alopecia, No Lesions Neurologic: No: Weakness, Dizziness, Syncope, Focal Abnormalities, Coordination Problem, Headache, Slurred Speech, Seizures Psychiatric: No: Depression, Suicidal Ideations, Homicidal Ideation Endocrine: No: Heat Intolerance, Cold Intolerance, Polydipsia, Polyuria, Other Physical Exam Physical Exam Narrative GENERAL: Well-nourished, well-developed patient. SKIN: Warm and dry. HEAD: Normocephalic and atraumatic. EYES: No scleral icterus. No injection or drainage. ENT: No nasal drainage noted. Mucous membranes pink. Airway patent. NECK: Supple, trachea midline. No JVD. CARDIOVASCULAR: Regular rate and rhythm without murmurs, gallops, or rubs. RESPIRATORY: Breath sounds equal bilaterally. No accessory muscle use. ABDOMEN/GI: Abdomen soft, non-tender, bowel sounds present, no rebound, no guarding Gravid to 37 weeks size GENITOURINARY: External Genitalia: intact and normal in appearance Cervix: posterior Dilatation: 1 Effacement: 0 Station: -3 Presentation: vertex Membranes: intact Uterine Contractions: occasional FHT's: Category: 1 Baseline: 140 Reactive: yes Variability: moderate Decels: none EXTREMITIES: No cyanosis or edema. BACK: Nontender without obvious deformity. No CVA tenderness. NEUROLOGICAL: Awake and alert. Motor and sensory grossly within normal limits. Five out of 5 muscle strength in all muscle groups. Normal speech. Data Data Data Vital Signs Reviewed: Yes [facility] Medical Record Reviewed: Yes Interpretation(s) 42 y/o at 37/5 weeks presents with RUQ and right arm pain. Edematous on exam, concern for preeclampsia Category 1 FHT Cervical exam: 1/0/-3 BP up to 170/70s -CBC, CMP, uric acid, urine protein/Cr ratio ordered -Serial BPs Narrative Course / MDM Platelets wnl, uric acid wnl AST 53, protein/Cr ratio = 0.3 Pt given IV hydralazine, BPs remaining elevated -Admit to labor and delivery -Induction with cytotec -Monitor vitals, Hydralazine PRN hypertension -Start IV Mag citrate for neuroprotection, monitor for toxicity -Plan for vaginal delivery, may need operative delivery depending on progression Diagnosis Diagnosis: Primary Impression: Qualified Codes: Z3A.37 - 37 weeks gestation of Additional Impression: Preeclampsia Qualified Codes: O14.93 - Unspecified pre-eclampsia, third trimester Anjel Jimenez MD, R2 Aug 21, 2017 16:13
[2017-08-21] MEDS ORDERED: hydrALAZINE HCL 20 MG/ML VIAL IV PUSH PRN (16:15)
[2017-08-21] MEDS: LACTATED RINGER'S 1000 ML INJ 1,000 ML IV SCH (16:30)
[2017-08-21] MEDS ORDERED: MISOPROSTOL 25 MCG SUPP VAGINAL ONE ×2 (16:30→23:00)
[2017-08-21] MEDS ORDERED: MAGNESIUM SULFATE 4 GM PREMIX 100 ML IV ONE (16:30)
[2017-08-21] MEDS: MAGNESIUM SULFATE 40 GM PREMIX 1,000 ML IV SCH (17:05)
--- NOTE | 2017-08-21 17:10 | HHI.HP ---
History & Physical H&P Patient is a 42-year-old 5 para 3013 with IUP at 37 weeks and 5 days. She presents with elevated blood pressures, contractions, and right upper quadrant pain. On further evaluation she was noted to have preeclampsia severe features so was admitted for magnesium sulfate for seizure prophylaxis, IV management of her elevated blood pressures, and induction of labor. A bedside ultrasound was performed and confirmed fetus in the cephalic presentation. She is aware of the risk of delivery should she need more urgent delivery, and her other traditional obstetrical indications. Dina Johnson MD Aug 21, 2017 17:10
--- NOTE | 2017-08-21 17:21 | PD ---
History of Present Illness History of Present Illness NST report Indications: IUP at 37 weeks, advanced maternal age, elevated blood pressures, scant care NST: heart rate in the 130s with moderate long-term variability, good accelerations, no decelerations noted. This is a reactive NST Follow-up: We'll admit and continue monitoring Final diagnosis IUP at 37 weeks, advanced maternal age, elevated blood pressures and sister with preeclampsia with severe features, scant care Dina Johnson MD Aug 21, 2017 17:20
--- NOTE | 2017-08-21 18:26 | RADRPT ---
EXAM DATE/TIME: 08/21/2017 17:47 [facility] COMPARISON: No previous studies available for comparison. INDICATIONS : Increased lab values. MEDICAL HISTORY : Glasses. Carpal tunnel bilaterally. Headache. Bipolar disorder. Depression. Anxiety. SURGICAL HISTORY : Cholecystectomy. Left foot surgery. Right shoulder surgery. ENCOUNTER: Initial ACUITY: 1 week PAIN SCORE: 2/10 LOCATION: Bilateral upper quadrant MEASUREMENTS: LIVER: 17.5 cm length COMMON DUCT: Non-visualized RIGHT KIDNEY: 10.1 x 4.6 x 4.9 cm SPLEEN: 13.1 cm length FINDINGS: LIVER: Normal echotexture without focal lesion or ductal dilatation. COMMON DUCT: No intraluminal mass or stone visualized. GALLBLADDER: Contains no stones, demonstrates no wall thickening or pericholecystic fluid. PANCREAS: The visualized portions are within normal limits. RIGHT KIDNEY: There is mild hydronephrosis, presumably related to . Lateral to the upper pole is a 5.4 cm cystic structure. SPLEEN: No focal lesion. CONCLUSION: 1. Mild hydronephrosis of the right kidney, presumably related to . 2. 5.4 cm cystic structure in the right upper quadrant, I believe probably an exophytic cyst off of t he upper pole of the right kidney. It is not typical of a hematoma. A CT of the abdomen an d pelvis with intravenous contrast is suggested if felt clinically indicated. Abel Rose MD on August 21, 2017 at 18:19 Board Certified Radiologist. This report was verified electronically.
--- NOTE | 2017-08-21 19:09 | HHI.PR ---
Subjective Remarks Presents to bedside to place Cytotec. FHR reassuring and category 1. Patient was stable blood pressures. Direct supervision of PGY [address] Cytotec without incident at 1820. Objective Result Diagram: 08/21/17 1500 08/21/17 1500 Dina Johnson MD Aug 21, 2017 19:09
[2017-08-21] MEDS: CALCIUM CARBONATE 500 MG CHEWABLE TAB CHEW PRN (20:15)
[2017-08-21] MEDS ORDERED: SODIUM CHLORIDE 0.9% FLUSH 5 ML FLUSH IV FLUSH SCH (21:00)
[2017-08-21] MEDS ORDERED: PENICILLIN G POTASSIUM INJ 5,000,000 UNITS in SODIUM CHLORIDE 0.9% INJ 100 ML IV ONE (21:00)
[2017-08-21] MEDS ORDERED: MISOPROSTOL 25 MCG SUPP VAGINAL SCH (22:30)
[2017-08-22] VITALS (50 sets, daily range): BP systolic 120–216; BP diastolic 58–110; PULSE 76–102; RESP 14–18; TEMP 97.7–98.6; O2SAT 99
[2017-08-22] MEDS: MISOPROSTOL 25 MCG SUPP VAGINAL SCH ×3 (01:00→20:56)
[2017-08-22] MEDS ORDERED: OXYTOCIN 30 UNITS-500ML PREMIX 500 ML IV SCH ×2 (01:00→09:00)
[2017-08-22] MEDS: CALCIUM CARBONATE 500 MG CHEWABLE TAB CHEW PRN (03:47)
[2017-08-22] MEDS: LACTATED RINGER'S 1000 ML INJ 1,000 ML IV SCH ×2 (05:00→05:02)
[2017-08-22] MEDS: PENICILLIN G POTASSIUM INJ 2,500,000 UNITS in SODIUM CHLORIDE 0.9% INJ 100 ML IV SCH ×3 (05:17→20:57)
[2017-08-22 06:31] LABS: ALKALINE PHOSPHATASE 200 U/L (45-117); ALT (GPT) 31 U/L (10-53); ANION GAP 10 MEQ/L (5-15); AST (GOT) 51 U/L (15-37); BICARBONATE 20.8 MEQ/L (21.0-32.0); BLOOD UREA NITROGEN 6 MG/DL (7-18); CHLORIDE 104 MEQ/L (98-107); GLOMERULAR FILTRATION RATE 112 ML/MIN (>89); POTASSIUM 3.7 MEQ/L (3.5-5.1); SODIUM (NA) 135 MEQ/L (136-145); TOTAL BILIRUBIN ADULT 0.3 MG/DL (0.2-1.0)
[2017-08-22] MEDS ORDERED: ACETAMIN 325 MG/BUTALBITAL 50 MG/CAFFEINE 40 MG TAB PO PRN (07:30)
--- NOTE | 2017-08-22 08:07 | HHI.PR ---
Subjective Remarks OB attending note Subjective: Patient reports painful contractions, she was Gabriel pain medication at this time O: VSS AF, most recent blood pressure elevated, recheck FHT: Baseline 120s, good accelerations, no repetitive decelerations, moderate long-term variability [place]: Q3 to 4 minutes SVE: 6/complete/-1 A/P: 1. IUP at 37.6 2. Preeclampsia: Continue induction of labor for preeclampsia, continue mag sulfate infusion, most recent blood pressure elevated however patient in labor pain at this time will recheck in medicate if needed. 3. GBS positive: Continue penicillin G 4. well-being: Reassuring FHT, will monitor closely Objective Result Diagram: 08/21/17 1500 08/22/17 0502 Dina Johnson MD Aug 22, 2017 08:07
--- NOTE | 2017-08-22 08:58 | PD.OB.DELI ---
Weeks gestation: 37 Gest age assessed date: Aug 22, 2017 Gest age assessed time: 08:52 Pt started active labor?: Yes Active labor start date: Aug 22, 2017 Active labor start time: 04:00 Medical induction of labor?: Yes Medical induction start date: Aug 22, 2017 Medical induction start time: 16:00 Artificial rupture of membrane: No Anesthesia: None Episiotomy: None Vaginal Delivery: Normal Presentation: Occiput anterior Nuchal Cord: None Delayed cord clamping (45 sec): Yes Infant: Male Delivery date: Aug 22, 2017 Delivery time: 08:46 One Minute : 9 Five Minute : 9 Weight: 8#5oz. Placenta: Spontaneous delivery Laceration: No lacerations Estimated blood loss: 250 Additional Information The patient rapidly progressed from 8 cm dilated to completely dilated. She commenced spontaneous maternal expulsive efforts and delivered the head over a an intact perineum atraumatically followed by atraumatic and spontaneous delivery of the anterior shoulder and remainder of . The vigorous was placed in the maternal abdomen and cord clamped delayed as per protocol. After an appropriate delay the cord was doubly clamped and cut and cord blood obtained for the nursery. The placenta was delivered spontaneously and appeared to be intact. No vaginal or perineal lacerations were noted. EBL 250 cc. Apgars 9 and 9. Both mother and baby are doing well. Dina Johnson MD Aug 22, 2017 08:58
[2017-08-22] MEDS ORDERED: oxyCODONE/ACETAMINOPHEN 5 MG/325 MG TAB PO PRN (09:00)
[2017-08-22] MEDS ORDERED: DOCUSATE SODIUM 50 MG/SENNA 8.6 MG TAB PO PRN (09:00)
[2017-08-22] MEDS ORDERED: ZOLPIDEM TARTRATE 5 MG TAB PO PRN (09:00)
[2017-08-22] MEDS ORDERED: BENZOCAINE 20% TOPICAL SPRAY 60 ML CAN TOPICAL PRN (09:00)
[2017-08-22] MEDS ORDERED: ALUMINUM/MAGNESIUM/SIMETH 30 ML CUP PO PRN (09:00)
[2017-08-22] MEDS ORDERED: SODIUM CHLORIDE 0.9% FLUSH 10 ML FLUSH IV FLUSH PRN (09:00)
[2017-08-22] MEDS ORDERED: ONDANSETRON ODT 4 MG TAB PO PRN (09:00)
[2017-08-22] MEDS ORDERED: ACETAMINOPHEN 325 MG TAB PO PRN (09:00)
[2017-08-22] MEDS: IBUPROFEN 600 MG TAB PO PRN ×3 (10:19→22:27)
[2017-08-22] MEDS: MAGNESIUM SULFATE 40 GM PREMIX 1,000 ML IV SCH (13:36)
[2017-08-22] MEDS: WITCH HAZEL 50%/GLYCERIN 12.5% 40 PAD JAR TOPICAL PRN (14:44)
[2017-08-22] MEDS ORDERED: DIPHTH/TETANUS/ACEL PERTUSSIS (BOOSTER) 0.5 ML VIAL/PFS IM ONE (16:00)
[2017-08-22] MEDS ORDERED: MEASLES, MUMPS, RUBELLA VACCINE 0.5 ML VIAL SQ ONE (16:00)
[2017-08-22] MEDS: SODIUM CHLORIDE 0.9% FLUSH 10 ML FLUSH IV FLUSH SCH (20:56)
[2017-08-23] VITALS (22 sets, daily range): BP systolic 128–153; BP diastolic 64–91; PULSE 16–92; RESP 16–18; TEMP 97.9–99.1
[2017-08-23] MEDS: LACTATED RINGER'S 1000 ML INJ 1,000 ML IV SCH (05:00)
[2017-08-23] MEDS: IBUPROFEN 600 MG TAB PO PRN ×2 (08:02→20:38)
[2017-08-23] MEDS: MAGNESIUM SULFATE 40 GM PREMIX 1,000 ML IV SCH (09:00)
[2017-08-23] MEDS: SODIUM CHLORIDE 0.9% FLUSH 10 ML FLUSH IV FLUSH SCH (09:00)
--- NOTE | 2017-08-23 15:19 | HHI.OB ---
Subjective Remarks 42 year old female s/p vaginal delivery induced for pre-eclampsia at 37/6 wks gestation, PPD 1. AFVSS. Patient reports she is feeling well. Bleeding is decreasing and pain is well-controlled. She is formula feeding and bonding well with baby. Ambulating without difficulties. She is tolerating a diet without nausea or vomiting. She has not had a bowel movement. She has passed gas. Denies chest pain, dysuria, shortness of breath, or calf pain. Today she notes mild numbness or tingling on her right lower extremity, denies abdominal pain, headache, vision change. Objective Vitals/I&O Vital Signs Date Time Temp Pulse Resp B/P (MAP) Pulse Ox O2 Delivery O2 Flow Rate FiO2 08/23/17 14:26 18 08/23/17 14:15 80 147/79 (101) 08/23/17 12:37 18 08/23/17 12:13 92 153/76 (101) 08/23/17 10:00 18 08/23/17 09:01 84 145/76 (99) 08/23/17 09:00 18 08/23/17 08:01 83 148/91 (110) 08/23/17 08:00 18 08/23/17 08:00 97.9 08/23/17 07:01 69 128/79 (95) 08/23/17 07:00 18 08/23/17 06:01 71 153/84 (107) 08/23/17 05:38 18 08/23/17 05:01 67 138/75 (96) 08/23/17 04:03 98.2 08/23/17 04:01 76 08/23/17 04:01 138/74 (95) 08/23/17 04:00 18 08/23/17 03:01 83 149/64 (92) 08/23/17 02:01 83 129/78 (95) 08/23/17 01:01 75 146/76 (99) 08/23/17 00:01 77 152/77 (102) 08/22/17 23:23 77 141/77 (98) 08/22/17 22:30 98.5 08/22/17 22:01 78 132/58 (82) 08/22/17 22:00 98.5 08/22/17 21:01 81 139/67 (91) 08/22/17 20:10 90 141/72 (95) 08/22/17 19:01 81 137/76 (96) 08/22/17 18:14 98.6 18 08/22/17 18:01 89 120/83 (95) 08/22/17 17:01 86 148/70 (96) 08/22/17 16:09 87 151/82 (105) Objective Remarks GENERAL: Well-nourished, well-developed patient. CARDIOVASCULAR: Regular rate and rhythm without murmurs, gallops, or rubs. RESPIRATORY: Breath sounds equal bilaterally. No accessory muscle use. ABDOMEN/GI: Abdomen soft, non-tender. Fundus: Firm, non-tender at umbilicus. GENITOURINARY: Light to moderate bleeding. EXTREMITIES: No cyanosis or edema, non-tender, without signs of DVT. Medications and IVs Current Medications Medications (Trade) Dose Ordered Sig/Thomas Route Start Time Stop Time Status Last Admin Lactated Ringer's 1,000 ml @ 75 mls/hr [id number] IV 08/21/17 16:30 08/23/17 05:00 Magnesium Sulfate 1,000 ml @ 50 mls/hr Q20H IV 08/21/17 17:00 08/22/17 13:36 (Calcium Gluconate Inj) 1 gm UNSCH PRN IV PUSH 08/21/17 16:00 (Tylenol) 650 mg Q4H PRN PO 08/21/17 16:00 08/21/17 20:48 (Zofran Inj) 4 mg Q6H PRN IV PUSH 08/21/17 16:00 (Colace) 100 mg BID PRN PO 08/21/17 16:00 (Tums Chew) 500 mg Q2H PRN CHEW 08/21/17 19:15 08/22/17 03:47 (Fioricet 325-50-40) 2 tab Q6H PRN PO 08/22/17 07:30 (fentaNYL INJ) 50 mcg Q1H PRN IV PUSH 08/22/17 08:00 (fentaNYL INJ) 100 mcg Q1H PRN IV PUSH 08/22/17 08:00 08/22/17 08:11 (NS Flush) 2 ml BID IV FLUSH 08/22/17 09:00 08/23/17 09:00 (NS Flush) 2 ml UNSCH PRN IV FLUSH 08/22/17 09:00 (Tylenol) 650 mg Q4H PRN PO 08/22/17 09:00 (Motrin) 600 mg Q6H PRN PO 08/22/17 09:00 08/23/17 08:02 (Percocet 5-325 Mg) 1 tab Q4H PRN PO 08/22/17 09:00 08/23/17 13:08 (Percocet 5-325 Mg) 2 tab Q4H PRN PO 08/22/17 09:00 (Americaine 20% Top Spr) 1 spray Q4H PRN TOPICAL 08/22/17 09:00 (Tucks Pads) 1 applic QID PRN TOPICAL 08/22/17 09:00 08/22/17 14:44 (Britney-Colace) 2 tab Q12H PRN PO 08/22/17 09:00 08/23/17 13:08 (Ambien) 5 mg HS PRN PO 08/22/17 09:00 (Mag-Al Plus Susp Liq) 15 ml Q8H PRN PO 08/22/17 09:00 (Zofran Odt) 4 mg Q6H PRN PO 08/22/17 09:00 Assessment/Plan Problem List: (1) Preeclampsia ICD Codes: O14.90 - Unspecified pre-eclampsia, unspecified trimester Status: Acute Qualifiers: Qualified Codes: O14.93 - Unspecified pre-eclampsia, third trimester Assessment and Plan 42 yo female s/p IVD for pre-eclampsia, PPD 1. - BP in the 140s systolic, continue to monitor - S/p MgSO4 24 hours - Initiate treatment for BP > 160/110 - Continue routine care - Motrin PRN pain - Encourage OOB - Pelvic rest x 6 wks - Contraception: Undecided - Anticipate D/C 08/24 Behzad Collier MD R2 Aug 23, 2017 15:19
[2017-08-23] MEDS: oxyCODONE/ACETAMINOPHEN 5 MG/325 MG TAB PO PRN (20:37)
[2017-08-24] VITALS: BP 144/63; PULSE 76; RESP 16; TEMP 99.4
[2017-08-24] MEDS: IBUPROFEN 600 MG TAB PO PRN ×2 (04:59→12:59)
[2017-08-24] MEDS: oxyCODONE/ACETAMINOPHEN 5 MG/325 MG TAB PO PRN ×2 (04:59→12:59)
[2017-08-24 05:00] VITALS: BP 157/70; PULSE 59; RESP 18; TEMP 98.3
[2017-08-24 09:30] VITALS: BP 148/86; PULSE 68; RESP 16; TEMP 98.8
[2017-08-24 10:59] LABS: AUTOMATED NEUTROPHIL # 7.4 TH/MM3 (1.8-7.7); BASOPHIL % 0.5 % (0.0-2.0); EOSINOPHIL # 0.2 TH/MM3 (0-0.4); EOSINOPHIL % 1.6 % (0.0-4.0); HEMO FLAGS DIFF FINAL; LYMPH % 18.8 % (9.0-44.0); LYMPHOCYTE # 1.9 TH/MM3 (1.0-4.8); MEAN CORPUSCULAR HEMOGLOBIN 23.5 PG (27.0-34.0); MEAN CORPUSCULAR HGB CONC 32.1 % (32.0-36.0); MONO % 7.1 % (0.0-8.0); PLATELET COUNT 237 TH/MM3 (150-450); RED BLOOD COUNT 4.24 MIL/MM3 (4.00-5.30); RED CELL DISTRIBUTION WIDTH 18.6 % (11.6-17.2); WHITE BLOOD COUNT 10.3 TH/MM3 (4.0-11.0)
[2017-08-24] MEDS: LACTATED RINGER'S 1000 ML INJ 1,000 ML IV SCH (11:10)
[2017-08-24 11:17] LABS: ANION GAP 8 MEQ/L (5-15); AST (GOT) 36 U/L (15-37); BICARBONATE 24.8 MEQ/L (21.0-32.0); BLOOD UREA NITROGEN 13 MG/DL (7-18); CHLORIDE 105 MEQ/L (98-107); GLOMERULAR FILTRATION RATE 97 ML/MIN (>89); POTASSIUM 4.2 MEQ/L (3.5-5.1); SODIUM (NA) 138 MEQ/L (136-145)
[2017-08-24 11:18] LABS: ALT (GPT) 22 U/L (10-53)
--- NOTE | 2017-08-24 11:18 | HHI.OB ---
Subjective Remarks 42 year old female s/p at 37/6 wks gestation, PPD 2. AFVSS. Patient reports she is feeling well. Bleeding is decreasing and pain is well- controlled. She is breast feeding and bonding well with baby. Ambulating without difficulties. She is tolerating a diet without nausea or vomiting. She has had a bowel movement. She has passed gas. Denies chest pain, dysuria, shortness of breath, or calf pain. (Behzad Collier MD R2) Remarks Patient seen and evaluated with resident under direct supervision, agree with assessment and plan. (Dagoberto Pang MD) Objective Vitals/I&O Vital Signs Date Time Temp Pulse Resp B/P (MAP) Pulse Ox O2 Delivery O2 Flow Rate FiO2 08/24/17 09:30 98.8 68 16 148/86 (106) 08/24/17 05:00 59 18 157/70 (99) 08/24/17 05:00 98.3 08/24/17 00:00 99.4 76 16 144/63 (90) 08/23/17 20:18 99.1 16 16 144/69 (94) 08/23/17 20:18 70 08/23/17 14:26 18 08/23/17 14:15 80 147/79 (101) 08/23/17 12:37 18 08/23/17 12:13 92 153/76 (101) Objective Remarks GENERAL: Well-nourished, well-developed patient. CARDIOVASCULAR: Regular rate and rhythm without murmurs, gallops, or rubs. RESPIRATORY: Breath sounds equal bilaterally. No accessory muscle use. ABDOMEN/GI: Abdomen soft, non-tender. Fundus: Firm, non-tender at umbilicus. GENITOURINARY: Light to moderate bleeding. EXTREMITIES: No cyanosis or edema, non-tender, without signs of DVT. Medications and IVs Current Medications Medications (Trade) Dose Ordered Sig/Thomas Route Start Time Stop Time Status Last Admin Lactated Ringer's 1,000 ml @ 75 mls/hr [id number] IV 08/21/17 16:30 08/23/17 05:00 Magnesium Sulfate 1,000 ml @ 50 mls/hr Q20H IV 08/21/17 17:00 08/22/17 13:36 (Calcium Gluconate Inj) 1 gm UNSCH PRN IV PUSH 08/21/17 16:00 (Tylenol) 650 mg Q4H PRN PO 08/21/17 16:00 08/21/17 20:48 (Zofran Inj) 4 mg Q6H PRN IV PUSH 08/21/17 16:00 (Colace) 100 mg BID PRN PO 08/21/17 16:00 (Tums Chew) 500 mg Q2H PRN CHEW 08/21/17 19:15 08/22/17 03:47 (Fioricet 325-50-40) 2 tab Q6H PRN PO 08/22/17 07:30 (fentaNYL INJ) 50 mcg Q1H PRN IV PUSH 08/22/17 08:00 (fentaNYL INJ) 100 mcg Q1H PRN IV PUSH 08/22/17 08:00 08/22/17 08:11 (NS Flush) 2 ml BID IV FLUSH 08/22/17 09:00 08/23/17 09:00 (NS Flush) 2 ml UNSCH PRN IV FLUSH 08/22/17 09:00 (Tylenol) 650 mg Q4H PRN PO 08/22/17 09:00 (Motrin) 600 mg Q6H PRN PO 08/22/17 09:00 08/24/17 04:59 (Percocet 5-325 Mg) 1 tab Q4H PRN PO 08/22/17 09:00 08/23/17 13:08 (Percocet 5-325 Mg) 2 tab Q4H PRN PO 08/22/17 09:00 08/24/17 04:59 (Americaine 20% Top Spr) 1 spray Q4H PRN TOPICAL 08/22/17 09:00 (Tucks Pads) 1 applic QID PRN TOPICAL 08/22/17 09:00 08/22/17 14:44 (Britney-Colace) 2 tab Q12H PRN PO 08/22/17 09:00 08/23/17 13:08 (Ambien) 5 mg HS PRN PO 08/22/17 09:00 (Mag-Al Plus Susp Liq) 15 ml Q8H PRN PO 08/22/17 09:00 (Zofran Odt) 4 mg Q6H PRN PO 08/22/17 09:00 (Behzad Collier MD R2) Assessment/Plan Problem List: (1) Preeclampsia ICD Codes: O14.90 - Unspecified pre-eclampsia, unspecified trimester Status: Acute Qualifiers: Qualified Codes: O14.93 - Unspecified pre-eclampsia, third trimester Assessment and Plan 42 yo female s/p IVD for pre-eclampsia, PPD 2. - BP in the 140s-150s systolic; DBP < 80 - S/p MgSO4 24 hours - Appt in 1 week for BP check - Check CBC, CMP; if abnormal, stay additional day for monitoring - ?Homelessness. 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
[2017-08-24 11:20] LABS: ALKALINE PHOSPHATASE 150 U/L (45-117); TOTAL BILIRUBIN ADULT 0.1 MG/DL (0.2-1.0)
[2017-08-24 14:20] VITALS: BP 145/83; PULSE 77
[2017-08-24] MEDS: WITCH HAZEL 50%/GLYCERIN 12.5% 40 PAD JAR TOPICAL PRN (14:27)
== END 2017-08-24 17:25 | disposition home or self-care (01) | DRG 775 ==
LOC: HOBED 13:05 → H2EA 15:57 → H1EA 08-23 14:23
PROVIDERS: ADMIT Obstetrics & Gynecology; ATTEND Obstetrics & Gynecology
PROC: 3E0P7VZ Introduction of Hormone into Female Reproductive, Via Natural or Artificial Opening (ICD-10-PCS; 2017-08-21)
PROC: 10E0XZZ Delivery of Products of Conception, External Approach (ICD-10-PCS; principal; 2017-08-22)
DX: O14.94 Unspecified pre-eclampsia, complicating childbirth (principal); O99.824 Streptococcus B carrier state complicating childbirth; Z3A.37 37 weeks gestation of pregnancy; Z37.0 Single live birth
CPT/HCPCS: 36415; 59025; 76705; 80053; 81001; 82570; 84112; 84156; 84550; 85025; 85027; 86900; 86901; 90715; J0360; J2540; J2590; J3010; J3475; J7120

== ENCOUNTER 2017-11-26 07:00 | Emergency (ER) | payer MEDICAID ==
[2017-11-26 07:14] VITALS: BP 148/74; PULSE 106; RESP 20; TEMP 101.1; O2SAT 94
[2017-11-26] MEDS ORDERED: SODIUM CHLOR 0.9% 1000 ML INJ 1,000 ML IV SCH (07:16)
[2017-11-26] MEDS ORDERED: ACETAMINOPHEN 325 MG TAB PO ONE (07:30)
[2017-11-26] MEDS ORDERED: OSELTAMIVIR PHOSPHATE 75 MG CAP PO ONE (07:30)
[2017-11-26] MEDS ORDERED: SODIUM CHLORIDE 0.9% FLUSH 10 ML FLUSH IV FLUSH PRN (07:30)
[2017-11-26 07:35] VITALS: O2SAT 95
--- NOTE | 2017-11-26 07:41 | PD ---
HPI Chief Complaint: Cold / Flu Symptoms Time Seen by Provider: 07:16 Travel History International Travel<30 days: No Contact w/Intl Traveler<30days: No Traveled to known affect area: No History of Present Illness HPI 42-year-old female presents the emergency Department with 2 day history of flulike symptoms including fever, chills, cough, ear pain, muscle aches, myalgias, and wheezing. Has decreased appetite and mild nausea but no vomiting or diarrhea. She states she has been urinating more frequently but denies dysuria. Patient states she's been coughing up yellowish phlegm. Patient states she's much worse this morning that she was yesterday. Patient has no known drug allergies. PFSH Past Medical History Bipolar Disorder: Yes Anxiety: Yes Depression: Yes Cancer: No Cardiovascular Problems: No Diabetes: No Diminished Hearing: No Headaches: Yes Musculoskeletal: Yes (sciatica) Neurologic: Yes (carple tunnel bilat) Psychiatric: Yes Immunizations Current: Yes Migraines: Yes Seizures: No ?: Not : 5 Para: 3 Miscarriage: 0 : 1 Past Surgical History Cholecystectomy: Yes Social History Alcohol Use: No Tobacco Use: No Substance Use: No Allergies-Medications (Allergen,Severity, Reaction): Coded Allergies: No Known Allergies (Unverified Adverse Reaction, Unknown, 11/26/17) Reported Meds & Prescriptions Reported Meds & Active Scripts Active Ventolin Hfa 18 GM Inh (Albuterol Sulfate) 90 Mcg/Act Aer 2 Puff INH Q4-6H PRN Tamiflu (Oseltamivir Phosphate) 75 Mg Cap 75 Mg PO BID 5 Days Prednisone 50 Mg Tab 50 Mg PO DAILY 5 Days Plus Iron 29-1 mg ( Vit-Iron Carbonyl) 1 Tab Tab 1 Tab PO DAILY Reported [Penicillin] 50 Mg PO Q4HR Review of Systems Except as stated in HPI: all other systems reviewed are Neg General / Constitutional: Positive: Fever, Chills Eyes: No: Visual changes HENT: Positive: Headaches, Sore Throat, Rhinitis, Rhinorrhea, Congestion, Earache, No: Vertigo, Lightheadedness, Nosebleed, Neck Stiffness, Neck Pain, Gingival Bleeding, Dental Difficulties, Ear Discharge Cardiovascular: No: Chest Pain or Discomfort Respiratory: Positive: Cough, Shortness of Breath, Wheezing, Sneezing, No: Orthopnea, Hemoptysis, Night Sweats, Pleuritic Pain Gastrointestinal: Positive: Nausea, No: Vomiting, Diarrhea, Abdominal Pain Genitourinary: No: Dysuria Musculoskeletal: No: Pain Skin: No Rash Neurologic: No: Weakness Psychiatric: No: Depression Endocrine: No: Polydipsia Hematologic/Lymphatic: No: Easy Bruising Physical Exam Narrative GENERAL: Patient appears ill but not septic. She has a tight wheezy cough. SKIN: Warm and dry. Normal color. Normal turgor. No rash. HEAD: Atraumatic. Normocephalic. EYES: Pupils equal and round. No scleral icterus. No injection or drainage. ENT: No nasal bleeding or discharge. Mucous membranes pink and moist. TMs are somewhat bulging without erythema or dullness bilaterally with serous effusion present. Posterior pharynx shows no significant erythema or swelling. Patient is moderately clear rhinitis. NECK: Trachea midline. No JVD. CARDIOVASCULAR: Regular rate and rhythm. RESPIRATORY: No accessory muscle use. Clear to auscultation. Breath sounds equal bilaterally. GASTROINTESTINAL: Abdomen soft, non-tender, nondistended. Hepatic and splenic margins not palpable. MUSCULOSKELETAL: Extremities without clubbing, cyanosis, or edema. No obvious deformities. NEUROLOGICAL: Awake and alert. No obvious cranial nerve deficits. Motor grossly within normal limits. Five out of 5 muscle strength in the arms and legs. Normal speech. PSYCHIATRIC: Appropriate mood and affect; insight and judgment normal. Data Data Last Documented VS Vital Signs Date Time Temp Pulse Resp B/P (MAP) Pulse Ox O2 Delivery O2 Flow Rate FiO2 11/26/17 09:29 18 11/26/17 07:35 95 Room Air 11/26/17 07:14 101.1 106 148/74 (98) Orders Orders Complete Blood Count With Diff (11/26/17 07:16) Comprehensive Metabolic Panel (11/26/17 07:16) Urinalysis - C+S If Indicated (11/26/17 07:16) Iv Access Insert/Monitor (11/26/17 07:16) Ecg Monitoring (11/26/17 07:16) Oximetry (11/26/17 07:16) Sodium Chlor 0.9% 1000 Ml Inj (Ns 1000 M (11/26/17 07:16) Sodium Chloride 0.9% Flush (Ns Flush) (11/26/17 07:30) Acetaminophen (Tylenol) (11/26/17 07:30) Influenzae A/B Antigen (11/26/17 07:16) Oseltamivir (Tamiflu) (11/26/17 07:30) Chest, Single Ap (11/26/17 ) Albuterol-Ipratropium Neb (Duoneb Neb) (11/26/17 07:45) Ed Discharge Order (11/26/17 08:35) Labs Laboratory Tests Test 11/26/17 07:23 11/26/17 07:40 White Blood Count 4.9 TH/MM3 Red Blood Count 4.48 MIL/MM3 Hemoglobin 11.3 GM/DL Hematocrit 33.5 % Mean Corpuscular Volume 74.7 FL Mean Corpuscular Hemoglobin 25.2 PG Mean Corpuscular Hemoglobin Concent 33.7 % Red Cell Distribution Width 15.4 % Platelet Count 322 TH/MM3 Mean Platelet Volume 8.5 FL Neutrophils (%) (Auto) 72.2 % Lymphocytes (%) (Auto) 9.8 % Monocytes (%) (Auto) 16.9 % Eosinophils (%) (Auto) 0.4 % Basophils (%) (Auto) 0.7 % Neutrophils # (Auto) 3.5 TH/MM3 Lymphocytes # (Auto) 0.5 TH/MM3 Monocytes # (Auto) 0.8 TH/MM3 Eosinophils # (Auto) 0.0 TH/MM3 Basophils # (Auto) 0.0 TH/MM3 CBC Comment AUTO DIFF Differential Comment AUTO DIFF CONFIRMED Total Protein 7.9 GM/DL Alkaline Phosphatase 84 U/L Total Bilirubin 0.4 MG/DL Urine Color YELLOW Urine Turbidity HAZY Urine pH 6.0 Urine Specific Lotus 1.027 Urine Protein TRACE mg/dL Urine Glucose (UA) NEG mg/dL Urine Ketones NEG mg/dL Urine Occult Blood NEG Urine Nitrite NEG Urine Bilirubin NEG Urine Urobilinogen LESS THAN 2.0 MG/DL Urine Leukocyte Esterase NEG Urine RBC 1 /hpf Urine WBC 2 /hpf Urine Squamous Epithelial Cells 12 /hpf Urine Bacteria RARE /hpf Urine Mucus MANY /lpf Microscopic Urinalysis Comment CULT NOT INDICATED MDM Medical Decision Making Medical Screen Exam Complete: Yes Emergency Medical Condition: Yes Differential Diagnosis Influenza. Cough. Wheezing. Fever. Narrative Course Patient appears ill but not septic. Labs ordered including CBC, and CMP. Patient is given DuoNeb 1. Chest x-ray is ordered. Rapid influenza is obtained. Patient is given Tamiflu 75 mg by mouth now. Patient is given acetaminophen 650 mg by mouth. Is x-ray is unremarkable for acute findings per radiologist. Labs are within normal limits. Rapid influenza A is positive for influenza A. Patient felt improved after her DuoNeb treatment. Patient is treated with Tamiflu 75 mg twice a day 5 days. Patient is given Ventolin metered-dose inhaler 2 puffs every 4-6 hours when necessary. Work note is given. Patient is to rest, push fluids, use Tylenol or ibuprofen as needed. She is to return to emergency department if symptoms worsen as needed. Diagnosis Primary Impression: Influenza A Referrals: Primary Care Physician Patient Instructions: General Instructions, H1N1 Influenza (GEN) Departure Forms: Work Release Enter return to work date: Dec 01, 2017 Special Instructions: No work until fever free for 24 hours. Patient has influenza. Additional Instructions: Rapid influenza A is positive for influenza A. Patient felt improved after her DuoNeb treatment. Patient is treated with Tamiflu 75 mg twice a day 5 days. Patient is given Ventolin metered-dose inhaler 2 puffs every 4-6 hours when necessary. Work note is given. Patient is to rest, push fluids, use Tylenol or ibuprofen as needed. She is to return to emergency department if symptoms worsen as needed. Med/Other Pt SpecificInfo: Prescription(s) given Scripts Albuterol 18 GM Inh (Ventolin Hfa 18 GM Inh) 90 Mcg/Act Aer 2 PUFF INH Q4-6H Y for SHORTNESS OF BREATH, #1 INHALER 0 Refills Prov: Rob Encarnacion MD 11/26/17 Oseltamivir (Tamiflu) 75 Mg Cap 75 MG PO BID for Mgmt Viral Infection for 5 Days, #10 CAP 0 Refills Prov: Rob Encarnacion MD 11/26/17 Disposition: 01 DISCHARGE HOME Condition: Stable Alexandru Babin Nov 26, 2017 07:41
[2017-11-26] MEDS ORDERED: RESP: ALBUTEROL 2.5 MG/IPRATROPIUM 0.5 MG NEB (SCH) NEB ONE (07:45)
[2017-11-26 08:02] LABS: BACTERIA, URINE RARE /hpf; BILIRUBIN, URINE NEG (NEG); BLOOD, URINE NEG (NEG); GLUCOSE,URINE NEG (NEG); KETONE, URINE NEG (NEG); MUCUS URINE MANY /lpf (OCC); NITRITE,URINE NEG (NEG); SQUAMOUS EPITHELIAL CELL URINE 12 /hpf (0-5); URINE COLOR YELLOW (YELLW/STRAW); URINE LEUKOCYTE ESTERASE NEG (NEG)
--- NOTE | 2017-11-26 08:07 | RADRPT ---
EXAM DATE/TIME: 11/26/2017 07:48 [facility] COMPARISON: No previous studies available for comparison. INDICATIONS : Cough. Flu-like symptoms. MEDICAL HISTORY : None. SURGICAL HISTORY : Cholecystectomy. Left foot surgery. Right shoulder surgery. ENCOUNTER: Initial ACUITY: 2 days PAIN SCORE: 1/10 LOCATION: Bilateral chest FINDINGS: A single view of the chest demonstrates the lungs to be symmetrically aerated without evidence of mas s, infiltrate or effusion. The cardiomediastinal contours are unremarkable. Osseous structures are intact. CONCLUSION: No pneumonia or other acute cardiopulmonary disease demonstrated. Abel Rose MD on November 26, 2017 at 8:06 Board Certified Radiologist. This report was verified electronically.
[2017-11-26 08:13] LABS: AUTOMATED NEUTROPHIL # 3.5 TH/MM3 (1.8-7.7); BASOPHIL % 0.7 % (0.0-2.0); EOSINOPHIL % 0.4 % (0.0-4.0); HEMATOCRIT 33.5 % (35.0-46.0); HEMOGLOBIN 11.3 GM/DL (11.6-15.3); LYMPH % 9.8 % (9.0-44.0); LYMPHOCYTE # 0.5 TH/MM3 (1.0-4.8); MEAN CELL VOLUME 74.7 FL (80.0-100.0); MEAN CORPUSCULAR HEMOGLOBIN 25.2 PG (27.0-34.0); MEAN CORPUSCULAR HGB CONC 33.7 % (32.0-36.0); MEAN PLATELET VOLUME 8.5 FL (7.0-11.0); MONO % 16.9 % (0.0-8.0); MONOCYTE # 0.8 TH/MM3 (0-0.9); NEUT % 72.2 % (16.0-70.0); PLATELET COUNT 322 TH/MM3 (150-450); RED BLOOD COUNT 4.48 MIL/MM3 (4.00-5.30); RED CELL DISTRIBUTION WIDTH 15.4 % (11.6-17.2); WHITE BLOOD COUNT 4.9 TH/MM3 (4.0-11.0)
[2017-11-26 08:21] LABS: TOTAL BILIRUBIN ADULT 0.4 MG/DL (0.2-1.0)
[2017-11-26] MEDS ORDERED: VENTAER INH (08:30)
[2017-11-26] MEDS ORDERED: OSEL75 PO (08:30)
[2017-11-26 08:35] LABS: TOTAL PROTEIN 7.9 GM/DL (6.4-8.2)
[2017-11-26 08:36] LABS: ALKALINE PHOSPHATASE 84 U/L (45-117)
[2017-11-26 09:29] VITALS: RESP 18
[2017-11-26 10:11] VITALS: BP 138/74
[2017-11-26 13:05] LABS: BLOOD UREA NITROGEN ND MG/DL (7-18); CREATININE ND MG/DL (0.50-1.00); GLUCOSE,RANDOM ND MG/DL (74-106)
[2017-11-26 13:06] LABS: ALBUMIN ND GM/DL (3.4-5.0); ALT (GPT) ND U/L (10-53); AST (GOT) ND U/L (15-37); BICARBONATE ND MEQ/L (21.0-32.0); CALCIUM ND MG/DL (8.5-10.1); CHLORIDE ND MEQ/L (98-107); SODIUM (NA) ND MEQ/L (136-145)
== END 2017-11-26 10:12 | disposition home or self-care (01) ==
LOC: NEPD 07:00
DX: J10.1 Influenza due to other identified influenza virus with other respiratory manifestations (principal); F31.9 Bipolar disorder, unspecified; F41.9 Anxiety disorder, unspecified
CPT/HCPCS: 71045; 80053; 81001; 85025; 87804; 94664; 96360; 99284; J7030

== ENCOUNTER 2017-12-24 07:59 | Emergency (ER) | payer OTHER, MEDICAID ==
[~2017-12-24] VITALS: Ht 154.9 cm; Wt 88.5 kg
[~2017-12-24 07:59] MED LIST changes: +OSEL75 PO; +VENTAER INH
[2017-12-24 08:01] VITALS: BP 144/67; PULSE 89; RESP 18; TEMP 99.1; O2SAT 99
[2017-12-24] MEDS ORDERED: LURA40 PO (08:21)
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
[2017-12-24] MEDS ORDERED: IBUPROFEN 600 MG TAB PO ONE (09:15)
[2017-12-24] MEDS ORDERED: SODIUM CHLOR 0.9% 1000 ML INJ 1,000 ML IV ONE (09:15)
[2017-12-24 10:04] LABS: AUTOMATED NEUTROPHIL # 3.1 TH/MM3 (1.8-7.7); BASOPHIL % 0.6 % (0.0-2.0); EOSINOPHIL # 0.1 TH/MM3 (0-0.4); EOSINOPHIL % 1.5 % (0.0-4.0); HEMATOCRIT 36.2 % (35.0-46.0); LYMPH % 30.9 % (9.0-44.0); LYMPHOCYTE # 1.6 TH/MM3 (1.0-4.8); MEAN CELL VOLUME 72.9 FL (80.0-100.0); MEAN CORPUSCULAR HEMOGLOBIN 24.1 PG (27.0-34.0); MEAN PLATELET VOLUME 7.8 FL (7.0-11.0); MONO % 7.5 % (0.0-8.0); MONOCYTE # 0.4 TH/MM3 (0-0.9); NEUT % 59.5 % (16.0-70.0); PLATELET COUNT 431 TH/MM3 (150-450); RED BLOOD COUNT 4.96 MIL/MM3 (4.00-5.30); RED CELL DISTRIBUTION WIDTH 15.4 % (11.6-17.2); WHITE BLOOD COUNT 5.2 TH/MM3 (4.0-11.0)
[2017-12-24] MEDS ORDERED: DIPHENOXYLATE/ATROPINE 2.5 MG/0.025 MG TAB PO ONE (10:15)
[2017-12-24 10:21] LABS: BICARBONATE 28.4 MEQ/L (21.0-32.0); CALCIUM 8.1 MG/DL (8.5-10.1)
[2017-12-24 10:33] LABS: CREATININE 0.64 MG/DL (0.50-1.00)
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
[2017-12-24] MEDS ORDERED: LOMO2.5T PO (10:54)
== END 2017-12-24 11:16 | disposition home or self-care (01) ==
LOC: NEPE 07:59
DX: B34.9 Viral infection, unspecified (principal); R19.7 Diarrhea, unspecified; S16.1XXA Strain of muscle, fascia and tendon at neck level, initial encounter; F31.9 Bipolar disorder, unspecified; X58.XXXA Exposure to other specified factors, initial encounter; Z72.0 Tobacco use
CPT/HCPCS: 72050; 72072; 80048; 85025; 96360; 99284; J7030

== ENCOUNTER 2018-01-08 07:38 | Emergency (ER) | payer MEDICAID ==
[~2018-01-08] VITALS: Ht 154.9 cm; Wt 89.0 kg
[~2018-01-08 07:38] MED LIST changes: +LOMO2.5T PO; +LURA40 PO; -OSEL75 PO; -PENICILLIN PO; -PRED50 PO; -PREN29TA PO; -VENTAER INH
[2018-01-08 07:42] VITALS: BP 133/73; PULSE 87; RESP 16; TEMP 98.4; O2SAT 96
[2018-01-08] MEDS ORDERED: SODIUM CHLOR 0.9% 1000 ML INJ 1,000 ML IV SCH (07:50)
--- NOTE | 2018-01-08 07:55 | PD ---
HPI Chief Complaint: GI Complaint Time Seen by Provider: 07:44 Travel History International Travel<30 days: No Contact w/Intl Traveler<30days: No Traveled to known affect area: No History of Present Illness HPI Patient was seen and examined in the presence of a nurse at all times This is a 43-year-old female with a history of bipolar disorder who presents for evaluation of nausea, vomiting, diarrhea. She states that around 5 AM, she awoke with nausea developed nausea. She has had 2-3 episodes of nonbilious, nonbloody emesis. She had 2 episodes of diarrhea without melena or hematochezia. Mild abdominal cramping before vomiting/diarrhea but no significant abdominal pain otherwise. She has been otherwise well recently without fever, chills, cough, congestion. No urinary urgency, frequency, dysuria, hematuria. She states that she had steak, lobster and shrimp at home for her birthday/Noel's Day last night. She states that she does eat her steak pretty rare. Symptoms are mild in severity. Onset gradual. Prior treatment includes Tums. No alleviating or aggravating factors. PFSH Past Medical History Bipolar Disorder: Yes Anxiety: Yes Depression: Yes Cancer: No Cardiovascular Problems: No Diabetes: No Diminished Hearing: No Headaches: Yes Musculoskeletal: Yes (sciatica) Psychiatric: Yes Immunizations Current: Yes Migraines: Yes Seizures: No ?: Not LMP: 12/24/17 : 5 Para: 3 Miscarriage: 0 : 1 Past Surgical History Cholecystectomy: Yes Social History Alcohol Use: No Tobacco Use: Yes Substance Use: No Allergies-Medications (Allergen,Severity, Reaction): Coded Allergies: No Known Allergies (Unverified , 12/24/17) Reported Meds & Prescriptions Reported Meds & Active Scripts Active Bentyl (Dicyclomine HCl) 10 Mg Cap 10 Mg PO TID PRN Zofran Odt (Ondansetron Odt) 4 Mg Tab 4 Mg SL Q8HR PRN Reported Latuda (Lurasidone) 40 Mg Tab 40 Mg PO DAILY Review of Systems Except as stated in HPI: all other systems reviewed are Neg Physical Exam Narrative GENERAL: Alert, well nourished, well appearing patient resting on the bed in no acute distress. Vital Signs reviewed SKIN: Focused skin assessment warm/dry. HEAD: Atraumatic. Normocephalic. EYES: Pupils equal and round. No scleral icterus. No injection or drainage. ENT: No nasal bleeding or discharge. Mucous membranes pink and moist. NECK: Trachea midline. No JVD. Spontaneous, painless full range of motion with no meningismus CARDIOVASCULAR: Regular rate and rhythm. No murmur appreciated. Extremities warm and well perfused with bounding peripheral pulses RESPIRATORY: No accessory muscle use. Clear to auscultation. Breath sounds equal bilaterally. Breathing easily and speaking in full sentences GASTROINTESTINAL: Abdomen soft, mildly tender in lower abdomen, nondistended. Normal bowel sounds. No rigid, rebound, guarding MUSCULOSKELETAL: No obvious deformities. No clubbing. No cyanosis. No edema. Compartments are soft NEUROLOGICAL: Awake and alert. No obvious cranial nerve deficits. Motor grossly within normal limits. Normal speech. Sensation intact. Normal gait Data Data Last Documented VS Vital Signs Date Time Temp Pulse Resp B/P (MAP) Pulse Ox O2 Delivery O2 Flow Rate FiO2 01/08/18 09:25 74 16 127/74 (91) 97 Room Air 01/08/18 07:42 98.4 Orders Orders Complete Blood Count With Diff (01/08/18 07:50) Comprehensive Metabolic Panel (01/08/18 07:50) Lipase (01/08/18 07:50) Urinalysis - C+S If Indicated (01/08/18 07:50) Iv Access Insert/Monitor (01/08/18 07:50) Sodium Chlor 0.9% 1000 Ml Inj (Ns 1000 M (01/08/18 07:50) Sodium Chloride 0.9% Flush (Ns Flush) (01/08/18 08:00) Ed Urine Pregnancytest Poc (01/08/18 07:50) Influenzae A/B Antigen (01/08/18 07:55) Ondansetron Inj (Zofran Inj) (01/08/18 08:30) Urine Culture (01/08/18 07:40) Ct Abd/Pel W Iv Contrast(Rout) (01/08/18 08:40) Iohexol 350 Inj (Omnipaque 350 Inj) (01/08/18 09:47) Labs Laboratory Tests Test 01/08/18 07:40 01/08/18 08:05 Urine Collection Type CLEAN CATCH Urine Color YELLOW Urine Turbidity CLEAR Urine pH 5.5 Urine Specific [place] 1.026 Urine Protein NEG mg/dL Urine Glucose (UA) NEG mg/dL Urine Ketones NEG mg/dL Urine Occult Blood TRACE Urine Nitrite NEG Urine Bilirubin NEG Urine Leukocyte Esterase SMALL Urine RBC 4-9 /hpf Urine WBC 15-19 /hpf Urine Squamous Epithelial Cells > 8 /hpf Urine Bacteria MOD /hpf Microscopic Urinalysis Comment CULTURE INDICATED Urine Collection Time 07:40 White Blood Count 12.5 TH/MM3 Red Blood Count 5.22 MIL/MM3 Hemoglobin 12.8 GM/DL Hematocrit 37.8 % Mean Corpuscular Volume 72.3 FL Mean Corpuscular Hemoglobin 24.5 PG Mean Corpuscular Hemoglobin Concent 33.9 % Red Cell Distribution Width 16.5 % Platelet Count 355 TH/MM3 Mean Platelet Volume 8.7 FL Neutrophils (%) (Auto) 88.3 % Lymphocytes (%) (Auto) 3.7 % Monocytes (%) (Auto) 4.6 % Eosinophils (%) (Auto) 1.4 % Basophils (%) (Auto) 2.0 % Neutrophils # (Auto) 10.9 TH/MM3 Lymphocytes # (Auto) 0.5 TH/MM3 Monocytes # (Auto) 0.6 TH/MM3 Eosinophils # (Auto) 0.2 TH/MM3 Basophils # (Auto) 0.3 TH/MM3 CBC Comment AUTO DIFF Differential Comment AUTO DIFF CONFIRMED Blood Urea Nitrogen 17 MG/DL Creatinine 0.65 MG/DL Random Glucose 87 MG/DL Total Protein 8.0 GM/DL Albumin 3.4 GM/DL Calcium Level 8.3 MG/DL Alkaline Phosphatase 78 U/L Aspartate Amino Transf (AST/SGOT) 22 U/L Alanine Aminotransferase (ALT/SGPT) 23 U/L Total Bilirubin 0.5 MG/DL Sodium Level 137 MEQ/L Potassium Level 3.9 MEQ/L Chloride Level 105 MEQ/L Carbon Dioxide Level 25.5 MEQ/L Anion Gap 7 MEQ/L Estimat Glomerular Filtration Rate 100 ML/MIN Lipase 233 U/L [facility] Medical Decision Making Medical Screen Exam Complete: Yes Emergency Medical Condition: Yes Medical Record Reviewed: Yes Interpretation(s) Last 24 hours Impressions Abdomen/Pelvis CT 01/08/18 0840 Signed Impressions: Service Date/Time: December 09:38 - CONCLUSION: 1. No acute CT abnormality to explain patient's symptoms. Normal appendix. No bowel obstruction. 2. 5.3 x 2.9 cm low density right adrenal mass with indeterminate density on this contrast enhanced examination. Consider adrenal mass protocol MRI examination for further evaluation. 3. Fat-containing left inguinal hernia. Dheeraj Lim MD Laboratory Tests Test 01/08/18 07:40 01/08/18 08:05 Urine Collection Type CLEAN CATCH Urine Color YELLOW Urine Turbidity CLEAR Urine pH 5.5 Urine Specific [place] 1.026 Urine Protein NEG mg/dL Urine Glucose (UA) NEG mg/dL Urine Ketones NEG mg/dL Urine Occult Blood TRACE Urine Nitrite NEG Urine Bilirubin NEG Urine Leukocyte Esterase SMALL Urine RBC 4-9 /hpf Urine WBC 15-19 /hpf Urine Squamous Epithelial Cells > 8 /hpf Urine Bacteria MOD /hpf Microscopic Urinalysis Comment CULTURE INDICATED Urine Collection Time 07:40 White Blood Count 12.5 TH/MM3 Red Blood Count 5.22 MIL/MM3 Hemoglobin 12.8 GM/DL Hematocrit 37.8 % Mean Corpuscular Volume 72.3 FL Mean Corpuscular Hemoglobin 24.5 PG Mean Corpuscular Hemoglobin Concent 33.9 % Red Cell Distribution Width 16.5 % Platelet Count 355 TH/MM3 Mean Platelet Volume 8.7 FL Neutrophils (%) (Auto) 88.3 % Lymphocytes (%) (Auto) 3.7 % Monocytes (%) (Auto) 4.6 % Eosinophils (%) (Auto) 1.4 % Basophils (%) (Auto) 2.0 % Neutrophils # (Auto) 10.9 TH/MM3 Lymphocytes # (Auto) 0.5 TH/MM3 Monocytes # (Auto) 0.6 TH/MM3 Eosinophils # (Auto) 0.2 TH/MM3 Basophils # (Auto) 0.3 TH/MM3 CBC Comment AUTO DIFF Differential Comment AUTO DIFF CONFIRMED Blood Urea Nitrogen 17 MG/DL Creatinine 0.65 MG/DL Random Glucose 87 MG/DL Total Protein 8.0 GM/DL Albumin 3.4 GM/DL Calcium Level 8.3 MG/DL Alkaline Phosphatase 78 U/L Aspartate Amino Transf (AST/SGOT) 22 U/L Alanine Aminotransferase (ALT/SGPT) 23 U/L Total Bilirubin 0.5 MG/DL Sodium Level 137 MEQ/L Potassium Level 3.9 MEQ/L Chloride Level 105 MEQ/L Carbon Dioxide Level 25.5 MEQ/L Anion Gap 7 MEQ/L Estimat Glomerular Filtration Rate 100 ML/MIN Lipase 233 U/L Differential Diagnosis Gastritis, gastritis, , dehydration, food borne illness, appendicitis less likely Narrative Course IV access was established. Labs, imaging were performed. Her urinalysis was contaminated with large amount of squamous epithelial cells. She has no urinary urgency, frequency, dysuria, hematuria and I feel it is reasonable to await culture. She will need to be treated as culture shows actual UTI. Patient was given IV fluids and Zofran with improvement in her symptoms. Upon reexamination at 10:15 AM: She is resting comfortably on the bed, tolerating fluids and feeling much better. I reviewed the results of the workup with her. We also discussed the abnormality seen on the right renal mass. She understands she needs to follow up with her primary physician regarding this. Plan for discharge with supportive care, Zofran for nausea, Bentyl for abdominal cramping and close outpatient follow-up. Patient understands the importance of close outpatient follow-up. She understands she may require further testing and treatment as an outpatient. She understands strict return indications. She is comfortable with this plan and eager to go home. Diagnosis Primary Impression: Acute gastroenteritis Referrals: Primary Care Physician 2 days Patient Instructions: Gastroenteritis (ED), General Instructions Additional Instructions: Drink plenty of fluids to stay well-hydrated. Eat a bland diet and advance your diet slowly. Use Zofran for nausea. Bentyl for abdominal cramping. Follow-up with primary physician in one to 4 days for a recheck. You may require further testing regarding the abnormality seen on your right adrenal gland. Med/Other Pt SpecificInfo: Prescription(s) given Scripts Dicyclomine (Bentyl) 10 Mg Cap 10 MG PO TID Y for ABDOMINAL CRAMPING, #15 CAP 0 Refills Prov: Gerda Ribeiro MD 01/08/18 Ondansetron Odt (Zofran Odt) 4 Mg Tab 4 MG SL Q8HR Y for Nausea/Vomiting, #9 TAB 0 Refills Prov: Gerda Ribeiro MD 01/08/18 Disposition: 01 DISCHARGE HOME Condition: Stable Gerda Ribeiro MD Jan 08, 2018 07:55
[2018-01-08] MEDS ORDERED: SODIUM CHLORIDE 0.9% FLUSH 10 ML FLUSH IV FLUSH PRN (08:00)
[2018-01-08 08:16] LABS: AUTOMATED NEUTROPHIL # 10.9 TH/MM3 (1.8-7.7); BASOPHIL # 0.3 TH/MM3 (0-0.2); EOSINOPHIL # 0.2 TH/MM3 (0-0.4); EOSINOPHIL % 1.4 % (0.0-4.0); HEMATOCRIT 37.8 % (35.0-46.0); HEMOGLOBIN 12.8 GM/DL (11.6-15.3); LYMPH % 3.7 % (9.0-44.0); LYMPHOCYTE # 0.5 TH/MM3 (1.0-4.8); MEAN CELL VOLUME 72.3 FL (80.0-100.0); MEAN CORPUSCULAR HEMOGLOBIN 24.5 PG (27.0-34.0); MEAN CORPUSCULAR HGB CONC 33.9 % (32.0-36.0); MEAN PLATELET VOLUME 8.7 FL (7.0-11.0); MONO % 4.6 % (0.0-8.0); MONOCYTE # 0.6 TH/MM3 (0-0.9); NEUT % 88.3 % (16.0-70.0); PLATELET COUNT 355 TH/MM3 (150-450); RED BLOOD COUNT 5.22 MIL/MM3 (4.00-5.30); RED CELL DISTRIBUTION WIDTH 16.5 % (11.6-17.2); WHITE BLOOD COUNT 12.5 TH/MM3 (4.0-11.0)
[2018-01-08 08:18] LABS: BILIRUBIN, URINE NEG (NEG); BLOOD, URINE TRACE (NEG); GLUCOSE,URINE NEG (NEG); KETONE, URINE NEG (NEG); NITRITE,URINE NEG (NEG); PH, URINE 5.5 (5.0-8.5); URINE LEUKOCYTE ESTERASE SMALL (NEG)
[2018-01-08 08:25] LABS: URINE COLOR YELLOW (YELLW/STRAW)
[2018-01-08 08:25] LABS: CHLORIDE 105 MEQ/L (98-107); SODIUM (NA) 137 MEQ/L (136-145)
[2018-01-08 08:26] LABS: BACTERIA, URINE MOD /hpf; SQUAMOUS EPITHELIAL CELL URINE > 8 /hpf (0-5); WBC, URINE 15-19 /hpf (0-5)
[2018-01-08 08:29] LABS: ALBUMIN 3.4 GM/DL (3.4-5.0); BICARBONATE 25.5 MEQ/L (21.0-32.0); CALCIUM 8.3 MG/DL (8.5-10.1)
[2018-01-08 08:30] LABS: BLOOD UREA NITROGEN 17 MG/DL (7-18); GLUCOSE,RANDOM 87 MG/DL (74-106)
[2018-01-08] MEDS ORDERED: ONDANSETRON HCL 4 MG/2 ML VIAL IV PUSH ONE (08:30)
[2018-01-08 08:32] LABS: ALT (GPT) 23 U/L (10-53); AST (GOT) 22 U/L (15-37); CREATININE 0.65 MG/DL (0.50-1.00); GLOMERULAR FILTRATION RATE 100 ML/MIN (>89)
[2018-01-08 08:34] LABS: TOTAL BILIRUBIN ADULT 0.5 MG/DL (0.2-1.0)
[2018-01-08 08:35] LABS: ALKALINE PHOSPHATASE 78 U/L (45-117)
[2018-01-08 09:25] VITALS: BP 127/74; PULSE 74; RESP 16; O2SAT 97
[2018-01-08] MEDS ORDERED: IOHEXOL 350 MG/ML 10 ML VIAL (for RAD DIAG) IVCONTRAST ONE (09:47)
--- NOTE | 2018-01-08 09:57 | RADRPT ---
EXAM DATE/TIME: 01/08/2018 09:38 [place] COMPARISON: No previous studies available for comparison. INDICATIONS : Diffuse abdominal pain. Nausea, vomiting and diarrhea. IV CONTRAST: 85 cc Omnipaque 350 (iohexol) IV ORAL CONTRAST: No oral contrast ingested. RADIATION DOSE: 19.08 CTDIvol (mGy) MEDICAL HISTORY : None SURGICAL HISTORY : Cholecystectomy. ENCOUNTER: Initial ACUITY: 1 day PAIN SCALE: 8/10 LOCATION: Abdomen. TECHNIQUE: Volumetric scanning of the abdomen and pelvis was performed. Using automated exposure control and ad justment of the mA and/or kV according to patient size, radiation dose was kept as low as reasonably achievable to obtain optimal diagnostic quality images. DICOM format image data is available electro nically for review and comparison. FINDINGS: LOWER LUNGS: The visualized lower lungs are clear. LIVER: Homogeneous in density but enlarged measuring up to 19 cm in length. No intrahepatic ductal dilatatio n or focal mass. Gallbladder is surgically absent. SPLEEN: Normal size without lesion. PANCREAS: Within normal limits. KIDNEYS: Normal in size and shape. There is no mass, stone or hydronephrosis. ADRENAL GLANDS: 5.3 x 3.9 cm low density right adrenal mass. Left adrenal gland is unremarkable. VASCULAR: There is no aortic aneurysm. BOWEL/MESENTERY: The stomach, small bowel, and colon demonstrate no acute abnormality. The appendix is visualized and appears unremarkable. No evidence for obstruction. There is no free intraperitoneal air or fluid. ABDOMINAL WALL: Within normal limits. RETROPERITONEUM: There is no lymphadenopathy. BLADDER: No wall thickening or mass. REPRODUCTIVE: Prominent endometrium. Otherwise, unremarkable for age. INGUINAL: Fat-containing left inguinal hernia. MUSCULOSKELETAL: Within normal limits for patient age. CONCLUSION: 1. No acute CT abnormality to explain patient's symptoms. Normal appendix. No bowel obstruction. 2. 5.3 x 2.9 cm low density right adrenal mass with indeterminate density on this contrast enhanced e xamination. Consider adrenal mass protocol MRI examination for further evaluation. 3. Fat-containing left inguinal hernia. Dheeraj Lim MD on January 08, 2018 at 9:49 Board Certified Radiologist. This report was verified electronically.
[2018-01-08] MEDS ORDERED: DICY10 PO (10:25)
[2018-01-08] MEDS ORDERED: ZOFR4TAB3 SL (10:25)
[2018-01-08 10:47] VITALS: BP 121/71
== END 2018-01-08 10:49 | disposition home or self-care (01) ==
LOC: PHED 07:38
DX: K52.9 Noninfective gastroenteritis and colitis, unspecified (principal); R82.99 Other abnormal findings in urine; F31.9 Bipolar disorder, unspecified; F41.9 Anxiety disorder, unspecified; Z72.0 Tobacco use; Z79.899 Other long term (current) drug therapy
CPT/HCPCS: 74177; 80053; 81001; 83690; 84703; 85025; 87086; 87804; 96361; 96374; 99284; J2405; J7030; Q9967

== ENCOUNTER 2018-05-18 09:11 | Emergency (ER) | payer MEDICAID ==
[~2018-05-18] VITALS: Ht 154.9 cm; Wt 96.6 kg
[~2018-05-18 09:11] MED LIST changes: +DICY10 PO; -LOMO2.5T PO; +ZOFR4TAB3 SL
[2018-05-18 09:12] VITALS: BP 152/99; PULSE 99; RESP 18; TEMP 98; O2SAT 97
[2018-05-18] MEDS ORDERED: ALBUAER3 INH (09:36)
[2018-05-18] MEDS ORDERED: AMOX500T PO (09:36)
--- NOTE | 2018-05-18 09:36 | PD ---
HPI Chief Complaint: ENT Complaint Time Seen by Provider: 09:16 Travel History International Travel<30 days: No Contact w/Intl Traveler<30days: No Traveled to known affect area: No History of Present Illness HPI This is a 43-year-old female here with left ear pain and URI-like symptoms. She reports she has had nasal congestion for several weeks. She developed left ear pain which is throbbing, constant, moderate severity for 2 days. She also reports occasional wheezing. No fever chills. No chest pain or shortness of breath. History of asthma. Symptom severity is mild to moderate. PFSH Past Medical History Asthma: Yes Bipolar Disorder: Yes Anxiety: Yes Depression: Yes Cancer: No Cardiovascular Problems: No Diabetes: No Diminished Hearing: No Headaches: Yes Musculoskeletal: Yes (sciatica) Neurologic: Yes (carple tunnel bilat) Psychiatric: Yes Immunizations Current: Yes Migraines: Yes Seizures: No ?: Not LMP: Ended yesterday : 5 Para: 3 Miscarriage: 0 : 1 Past Surgical History Cholecystectomy: Yes Social History Alcohol Use: No Tobacco Use: No Substance Use: No Allergies-Medications (Allergen,Severity, Reaction): Coded Allergies: No Known Allergies (Unverified , 05/18/18) Reported Meds & Prescriptions Reported Meds & Active Scripts Active Reported Latuda (Lurasidone) 40 Mg Tab 40 Mg PO DAILY Review of Systems Except as stated in HPI: all other systems reviewed are Neg General / Constitutional: No: Fever Eyes: No: Visual changes HENT: Positive: Earache Cardiovascular: No: Chest Pain or Discomfort Respiratory: Positive: Cough, No: Shortness of Breath Gastrointestinal: No: Abdominal Pain Genitourinary: No: Dysuria Musculoskeletal: No: Pain Skin: No Rash Physical Exam Narrative GENERAL: Alert and well-appearing 43-year-old female. SKIN: Warm and dry. HEAD: Normocephalic. EYES: No injection or drainage. ENT: Left TM erythema, bulging, loss of landmarks. No canal swelling or drainage. No mastoid tenderness. NECK: Supple. No meningismus CARDIOVASCULAR: Regular rate and rhythm without murmurs, gallops, or rubs. RESPIRATORY: Breath sounds equal bilaterally. No accessory muscle use. Faint expiratory wheeze. Clears with cough. GASTROINTESTINAL: Abdomen soft, non-tender, nondistended. MUSCULOSKELETAL: No cyanosis, or edema. BACK: No CVA tenderness. Data Data Last Documented VS Vital Signs Date Time Temp Pulse Resp B/P (MAP) Pulse Ox O2 Delivery O2 Flow Rate FiO2 05/18/18 09:12 98.0 99 18 152/99 (116) 97 MDM Medical Decision Making Medical Screen Exam Complete: Yes Emergency Medical Condition: Yes Differential Diagnosis URI, otitis media, bronchitis, asthma, Narrative Course 43-year-old female here with left-sided otitis media. She also has faint expiratory wheezes history of asthma. She will be given a refill of her albuterol inhaler. Diagnosis Primary Impression: Otitis media Qualified Codes: H66.90 - Otitis media, unspecified, unspecified ear Additional Impression: Cough Referrals: Primary Care Physician Departure Forms: Tests/Procedures, Work Release Enter return to work date: May 20, 2018 Additional Instructions: Drink plenty of fluids. Tylenol or ibuprofen as needed for pain. Antibiotics as directed. Albuterol inhaler as directed. Scripts Albuterol 8.5 GM Inh (Proair Hfa 8.5 GM Inh) 90 Mcg/Act Aer 2 PUFF INH Q4-6H Y for SHORTNESS OF BREATH, #1 INHALER 0 Refills 108 mcg/actuation Prov: Nohelia Manrique 05/18/18 Amoxicillin (Amoxicillin) 500 Mg Tab 500 MG PO TID for Infection for 10 Days, TAB 0 Refills Prov: Nohelia Manrique 05/18/18 Disposition: 01 DISCHARGE HOME Condition: Stable Nohelia Manrique May 18, 2018 09:36
== END 2018-05-18 10:08 | disposition home or self-care (01) ==
LOC: PHEFT 09:11
DX: H66.92 Otitis media, unspecified, left ear (principal); R05 Cough; J45.909 Unspecified asthma, uncomplicated; R09.81 Nasal congestion; F41.8 Other specified anxiety disorders
CPT/HCPCS: 99283